=== PATIENT | female | born 1935 | race Caucasian/White ===

== ENCOUNTER 2019-02-25 20:13 | Inpatient (IN) | payer MEDICARE, MEDICAID ==
[~2019-02-25] VITALS: Ht 167.6 cm; Wt 86.2 kg
[2019-02-25] MEDS: HEPARIN SOD (PORCINE) 5000 UNITS/ML VIAL SC SCH (21:00)
[2019-02-25] MEDS ORDERED: NOREPINEPHRINE BITARTRATE 8 MG in D5W 492 ML IV SCH (22:00)
[2019-02-25] MEDS ORDERED: guaiFENesin SYRUP 200 MG/10 ML UDC PO PRN (23:15)
[2019-02-25 23:41] LABS: ABG BASE EXCESS -5.7 (-2.0-2.0); ABG HCO3 17.9 MEQ/L (22.0-26.0); ABG O2 SATURATION 96.8 % (95.0-99.0); ABG PARTIAL PRESSURE CO2 29.9 mmHg (35.0-45.0); ABG PARTIAL PRESSURE O2 86.3 mmHg (75.0-100.0); ABG STANDARD HCO3 19.8 MEQ/L (22.0-26.0); ABG TOTAL CO2 18.9 MEQ/L (23.0-31.0); ABG pH (ARTERIAL) 7.396 UNITS (7.350-7.450)
[2019-02-26] VITALS (20 sets, daily range): BP systolic 92–158; BP diastolic 53–80
[2019-02-26 00:09] LABS: HEMATOCRIT 36.6 % (36.0-47.0); MEAN CORPUSCULAR HEMOGLOBIN 30.2 pg (27.0-33.0); MEAN CORPUSCULAR HGB CONC 32.8 g/dl (32.0-36.5); MEAN CORPUSCULAR VOLUME 92.2 fl (80.0-96.0); PLATELET COUNT, AUTOMATED 142 10^3/uL (150-450); RED BLOOD COUNT 3.97 10^6/uL (4.00-5.40); WHITE BLOOD COUNT 25.1 10^3/uL (4.0-10.0)
[2019-02-26] MEDS ORDERED: LIDOCAINE 1% MDV 20ML VIAL As Ordered ONE (00:19)
[2019-02-26] MEDS ORDERED: ADV250INH INH (00:23)
[2019-02-26] MEDS ORDERED: HYDR200T3 PO ×2 (00:23→00:27)
[2019-02-26 00:25] LABS: ALBUMIN 2.4 GM/DL (3.2-5.2); BILIRUBIN,TOTAL 0.6 MG/DL (0.2-1.0); CALCIUM LEVEL 6.6 MG/DL (8.8-10.2); CREATININE FOR GFR 1.27 MG/DL (0.55-1.30); GLOMERULAR FILTRATION RATE 42.8 (>32); MAGNESIUM LEVEL 1.3 MG/DL (1.8-2.4); MB/CK RELATIVE INDEX 1.93 (< OR =4); POTASSIUM SERUM 3.6 MEQ/L (3.5-5.1); TOTAL PROTEIN 5.3 GM/DL (6.4-8.2); TROPONIN I 0.04 NG/ML (< 0.10)
[2019-02-26] MEDS ORDERED: LOSA100T50 PO (00:27)
[2019-02-26] MEDS ORDERED: VENTAER INH (00:27)
[2019-02-26] MEDS ORDERED: TRAM50TA2 PO (00:27)
[2019-02-26] MEDS ORDERED: FLUTISP (00:27)
[2019-02-26 00:28] LABS: LYMPHOCYTES 1 % (16-52); METAMYELOCYTES 4 % (0-0); NEUTROPHILS 84 % (35-75)
[2019-02-26 00:29] LABS: PLATELET ESTIMATE NORMAL (NORMAL)
[2019-02-26] MEDS ORDERED: RALO1TAB PO (00:33)
[2019-02-26] MEDS ORDERED: DICL100T89 PO (00:33)
[2019-02-26] MEDS ORDERED: AMLO2.5T3 PO (00:33)
[2019-02-26] MEDS ORDERED: NYAM10003 TOP (00:33)
[2019-02-26] MEDS ORDERED: SYNT25TA PO (00:43)
[2019-02-26] MEDS ORDERED: GABA-843 PO (00:43)
[2019-02-26] MEDS ORDERED: ARTI99.0 OU (00:43)
[2019-02-26] MEDS ORDERED: FLUO1OPD OU (00:43)
[2019-02-26] MEDS ORDERED: PROL60SO SC (00:43)
[2019-02-26] MEDS ORDERED: DICL50TAB PO (00:43)
[2019-02-26] MEDS ORDERED: TRAV04OPD OU (00:43)
[2019-02-26] MEDS ORDERED: OMEP20TA17 PO (00:43)
[2019-02-26] MEDS ORDERED: FURO20TA2 PO (00:43)
[2019-02-26] MEDS ORDERED: REST0.05 OU (00:43)
[2019-02-26] MEDS: NS 1,000 ML IV SCH ×2 (00:45→10:59)
[2019-02-26] MEDS: ACETAMINOPHEN TAB 650MG DOSE (2X325MG) PO PRN (00:47)
[2019-02-26] MEDS: guaiFENesin DM LIQ 10ML UD PO SCH ×5 (00:47→23:34)
[2019-02-26] MEDS ORDERED: ALBUTEROL 90 MCG/ACT 8GM HFA INHALER INH PRN (01:00)
[2019-02-26] MEDS ORDERED: POLYVINYL ALCOHOL OPHTH SOLN 15 ML(LIQUITEARS) OU PRN (01:00)
[2019-02-26] MEDS ORDERED: NYSTATIN 100,000 UNITS/GM TOPICAL PWD 15 GM TOP PRN (01:30)
[2019-02-26] MEDS ORDERED: NOREPINEPHRINE BITARTRATE 8 MG in D5W 492 ML IV SCH (02:00)
[2019-02-26] MEDS ORDERED: PILL CRUSHER/CUTTER 1 EACH XX PRN (02:45)
[2019-02-26] MEDS ORDERED: VANCOMYCIN HCL 1,000 MG, VIAL MATE ADAPTER 1 EACH in D5W 250 ML IV ONE (04:30)
[2019-02-26 05:38] LABS: HEMATOCRIT 35.2 % (36.0-47.0); HEMOGLOBIN 11.3 g/dl (12.0-15.5); MEAN CORPUSCULAR HEMOGLOBIN 29.7 pg (27.0-33.0); MEAN CORPUSCULAR HGB CONC 32.1 g/dl (32.0-36.5); MEAN CORPUSCULAR VOLUME 92.4 fl (80.0-96.0); PLATELET COUNT, AUTOMATED 116 10^3/uL (150-450); RED BLOOD COUNT 3.81 10^6/uL (4.00-5.40); WHITE BLOOD COUNT 22.7 10^3/uL (4.0-10.0)
[2019-02-26] MEDS ORDERED: MAGNESIUM OXIDE 400 MG TAB (MAG-OX) PO ONE (06:00)
[2019-02-26 06:02] LABS: MAGNESIUM LEVEL 1.3 MG/DL (1.8-2.4)
[2019-02-26 06:05] LABS: CALCIUM LEVEL 6.6 MG/DL (8.8-10.2); CREATININE FOR GFR 1.23 MG/DL (0.55-1.30); GLOMERULAR FILTRATION RATE 44.4 (>32); POTASSIUM SERUM 3.5 MEQ/L (3.5-5.1)
[2019-02-26] MEDS: PIPERACILLIN/TAZOBACTAM SOD 4.5 GM in D5W MINI-BAG PLUS 50 ML IV SCH ×4 (06:07→23:34)
[2019-02-26] MEDS: LEVOTHYROXINE 25MCG TABLET (0.025MG) PO SCH (06:07)
--- NOTE | 2019-02-26 06:20 | PHACANCOPD ---
PHARMACY VANCOMYCIN DOSING Pt Demographics Demographics Patient Age:84 , Weight:95.000 , Gender: female Adjusted Body Weight Date: 02/26/19, Adjusted Body Weight: [73.6] Kg Vancomycin Vancomycin indication: SEPTIC SHOCK Vancomycin Target Ranges: 15-20 mcg/ml Vancomycin Load Y/N: No Load Dose Date Time Vancomycin Load Dose: Date: Time: Vancomycin Dose Date: 02/26/19. Current Vancomycin Dose: [1 GM Q24H] Intermittent Dosing?: No Labs Labs Laboratory Tests 02/25/19 23:39 Red Blood Count 3.97 L, Mean Corpuscular Volume 92.2, Mean Corpuscular Hemoglobin 30.2, Mean Corpuscular Hemoglobin Concent 32.8, Red Cell Distribution Width 13.4, Calcium Level 6.6 L, Aspartate Amino Transf (AST/SGOT) 29, Alanine Aminotransferase (ALT/SGPT) 18, Total Creatine Kinase 316 H, Alkaline Phosphatase 59, Total Bilirubin 0.6, Total Protein 5.3 L, Albumin 2.4 L 02/26/19 05:15 Red Blood Count 3.81 L, Mean Corpuscular Volume 92.4, Mean Corpuscular Hemoglobin 29.7, Mean Corpuscular Hemoglobin Concent 32.1, Red Cell Distribution Width 13.4, Calcium Level 6.6 L Micro Microbiology 02/26/19 Blood Culture, Received Pending 02/26/19 Gram Stain, Received Pending 02/26/19 Sputum Culture, Received Pending Creatinine Clearance Date:02/26/19. Creatinine Clearance: [38.99].Calculated Pending Labs Vancomycin trough due 02/27@2099 Assessment and Plan Maintaining Current Dose?: Yes Reason for dose change: No Dose Change Pharmacist Note Pharmacist Note Date: 02/26/19. Pharmacist note:[id number] :Septic Shock;Scr=1.27,CRCL=38.9-calculated .Pip/Tazo 4.5gm Q6h plus Vancomycin per Pharmacy dosing protocol.Vancomycin 1 gm @0500,then will begin Q24H rghimen 02/26@2200, First trough scheduled for 02/27@2099-prior to the third dose-will continue to follow and adjust dose as needed CLAYTON [facility] Feb 26, 2019 06:20
--- NOTE | 2019-02-26 07:44 | REP ---
Portable chest, 11:42 p.m., single semi upright AP view: There are no comparisons. There is a large right upper lobe infiltrate. Left lung is clear. Cardiac size is normal. The abbie and mediastinum are unremarkable. There is bilateral shoulder osteoarthritis. There is a right IJ central venous catheter with the tip in the right atrium. Impression: Large right upper lobe infiltrate. Right IJ central venous catheter. Electronically Signed by Luis Penaloza MD 02/26/2019 07:35 A
--- NOTE | 2019-02-26 07:46 | REP ---
Portable chest, 12:56 a.m., single AP upright view: Comparison is from 02/25/2019. There is a large right upper lobe infiltrate, unchanged. There are small bilateral pleural effusions as an interval change. The right IJ central venous catheter is unchanged. Cardiac size is normal. Brenda and mediastinum are unchanged. Bilateral shoulder osteoarthritis is unchanged. Impression: Large right upper lobe infiltrate. Small bilateral pleural effusions. Right IJ central venous catheter. Electronically Signed by Luis Penaloza MD 02/26/2019 07:37 A
[2019-02-26 07:55] LABS: C REACTIVE PROTEIN QUANTITATIV 31.1 MG/DL (0.00-0.30)
--- NOTE | 2019-02-26 07:56 | HPE ---
DATE OF ADMISSION: 02/25/2019 CHIEF COMPLAINT: Feeling ill. HISTORY OF PRESENT ILLNESS: Ms. Jones is an 84-year-old female direct transfer from [facility] for septic shock secondary to pneumonia. She initially had presented to [facility] per the urging of her son who had felt that Ms. Jones was not herself for the previous few days. She herself denies any new complaints besides coughing and feeling more short of breath and she otherwise feels well. In the emergency room (ER) at [facility] she was noted to be febrile up to 101.4 and was noted to be quite hypotensive with a blood pressure (BP) of 71/37 on admission, pulse of 110, respirations at 29. She failed volume resuscitation and thus a central line was placed and she was started on Levophed. Due to lack of intensive care unit (ICU) bed she was transferred over to [facility]. Per hospital record she was started on intravenous (IV) Zosyn and Levaquin. She was found to have acute kidney injury (DON) and elevated C-reactive protein (CRP). CRP was elevated at 208. Chest x-ray revealed a right midlung mass versus a pneumonia. CT of the head was negative. CT of the chest confirmed a pneumonia and she was thereafter transferred to our facility. At the time of transfer the patient is fully conversant and continued on pressors in our ICU. She is a limited historian and admits to cough with some phlegm, increasing shortness of breath and wheezing and generalized weakness over the past couple of days. She states she lives alone at home and otherwise has been feeling well. She does have multiple falls at home, worsening over the previous few days that she has felt weaker. Otherwise she denies any chest discomfort, lightheadedness, dizziness, nausea or vomiting, abdominal pain or any other gastrointestinal (GI) symptoms. She also denies any sick contacts or any recent changes in medications. PAST MEDICAL HISTORY: 1. Osteoarthritis. 2. Sjogren's syndrome with keratoconjunctivitis sicca. 3. Hypertension. 4. Peripheral neuropathy. 5. Hypothyroidism. 6. Gastroesophageal reflux disease (GERD). PAST SURGICAL HISTORY: 1. Appendectomy. 2. Cholecystectomy. 3. Hysterectomy. 4. Mastectomy. 5. Right knee surgery. 6. Hip replacement. SOCIAL HISTORY: Denies ever smoking, denies alcohol or illicit substances. Lives alone at home. Previously worked as a pathology secretary. FAMILY HISTORY: Noncontributory. HOME MEDICATIONS: - albuterol - amlodipine 2.5 mg by mouth daily - cyclosporin eye drops - Prolia every six months - diclofenac as needed pain - fluorometholone eye drops - fluticasone propionate nasal spray - furosemide 20 mg by mouth daily - gabapentin 900 mg by mouth twice a day - hydroxychloroquine sulfate 300 mg by mouth daily - Synthroid 25 mcg by mouth daily - losartan 100 mg by mouth daily - nystatin - omeprazole 20 mg by mouth daily - artificial tears as needed dry eyes - raloxifene 60 mg by mouth daily - salmeterol fluticasone - tramadol as needed pain - Travatan eye drops ALLERGIES: FENOPROFEN causes hives. REVIEW OF SYSTEMS: GENERAL: Admits to fevers, chills, generalized malaise. Endorses a good appetite. Denies any weight loss. HEENT: Denies any new changes in vision or hearing. Denies any headaches. Admits to chronic dry eyes given her keratoconjunctivitis. CARDIAC: Denies chest pain, palpitations or new edema. LUNGS: Admits to increasing shortness of breath, coughing and wheezing with some phlegm production. GASTROINTESTINAL (GI): Denies nausea, vomiting, abdominal pain, or change in bowel habits. SKIN: Denies any new rashes or lesions. MUSCULOSKELETAL: Denies any new pain or localized aches. NEUROLOGY: Denies any new numbness, tingling or sensory loss. PHYSICAL EXAMINATION: VITAL SIGNS: Temperature 100.3, pulse 110, respirations 24, blood pressure (BP) 110/68, MAP of 82, pulse oximetry 96% on 2 liters nasal cannula. She is on 12 mcg of Levophed. GENERAL: Resting comfortably in bed in no acute distress. Taking deep heavy breaths but able to fully converse with intermittent coughing in between sentences. HEENT: Normocephalic, atraumatic. Extraocular muscles intact. Dry mucous membranes. NECK: Supple without any jugular venous distention (JVD). CARDIAC: Borderline tachycardic, regular rate, no audible murmurs. LUNGS: Mild rales more so on the right base. Diffuse wheezing bilaterally. Equal chest rise. ABDOMEN: Soft, nontender, nondistended. Positive bowel sounds. EXTREMITIES: 2+ radial pulses bilaterally. No peripheral edema or calf tenderness. MUSCULOSKELETAL: Able to move all extremities and independently against gravity. NEUROLOGY: No focal deficits. Fully conversant. Alert and oriented times three. GENITOURINARY (): Celaya in place with clear yellow urine output. LABORATORY DATA: WBC 25.1, hemoglobin 12, hematocrit 36, platelets 142. Sodium 135, potassium 2.6, chloride 104, bicarbonate 19, BUN 28, creatinine 1.27. Lactate 1.5, magnesium 1.3, AST 29, ALT 19. Sputum culture pending. Chest x-ray read currently pending but by personal visualization, she has visible consolidations in the right lung and increased haziness. She has a central line that initially appeared to be in the inferior vena cava and was readjusted by myself in the ICU and repeat chest x-ray reveals improvement placement of her right internal jugular (IJ) catheter. ASSESSMENT AND PLAN: 1. Septic shock secondary to community acquired pneumonia. The patient is noted to be febrile, tachycardic, tachypneic with elevated white count on initial presentation to [facility] and failed intravenous (IV) fluid resuscitation. She is currently on Levophed 12 mcg at the time of transfer. Will plan to titrate down, continue broad-spectrum antibiotics vancomycin and Zosyn. Methicillin resistant Staphylococcus aureus (MRSA) screen is pending. Blood cultures, MRSA screening and procalcitonin are currently pending. Her arterial blood gases (ABG) reveals normal pH of 7.39, PCO2 29, O2 86. She is currently requiring 2 liters nasal cannula. She is on none at baseline, acute hypoxia secondary to her acute pneumonia. Continue on droplet precautions and encourage incentive spirometry and continue supportive care with antitussives. Her C-reactive protein (CRP) at [facility] was significantly elevated at 208, We will continue to trend this throughout her stay. 2. Acute kidney injury (DON): Per records from [facility] her BUN and creatinine were 31 and 1.58 which appeared to have improved upon transfer. Per her record she is down to 28 and 1.27 likely is prerenal given her hypotensive episode. Will gently hydrate her with IV fluids and continue on pressors. She has a Celaya in place for critical monitoring of in and out (I and O). We do not have any previous records but it appears she might have a baseline chronic kidney disease (CKD) III. Will attempt to obtain outpatient records upon clarifying who her primary care physician (PCP) is. 3. Hypomagnesemia. Per previous hospital records at [facility], magnesium was 0.9 which was supplemented and currently is at 1.3. Will continue supplementation, reassess. 4. Sjogren's Syndrome with keratoconjunctivitis sicca. Continue home Plaquenil and eye drops. 5. Osteoarthritis. Continue home pain medications. 6. Hypothyroidism. Her TSH checked at [facility] was within normal at 0.799. Continue home Synthroid. 7. Hypertension. She is on amlodipine, Losartan and Lasix at home which we will hold given her septic shock. 8. Gastroesophageal reflux disease (GERD): Continue home omeprazole. 9. Deep venous thrombosis (DVT) prophylaxis. Heparin subcutaneous. DISPOSITION: Will admit to hospital service, closely monitor in the ICU. Per transfer report, her initial chest imaging revealed possible pneumonia versus mass. This will require further followup as she improves from her acutely infectious state. Also, per her transfer records she had stated that she would like to be DO NOT RESUSCITATE/ DO NOT INTUBATE (DNR/DNI) however there is no Medical Orders for Life-Sustaining Treatment (MOLST) form currently. Will address this directly with her as her mentation improves. My faculty preceptor for this patient encounter was physically present during the encounter and was fully available. All aspects of the patient interview, examination, medical decision-making process, and medical care plan development were reviewed and approved by the faculty preceptor. The faculty preceptor is aware and concurs with the plan as stated in the body of this note and will attest to such by his/her co-signature. Attending Addendum: I have reviewed the residents note and have personally examined the patient. I agree with the Residents physical examination and assessment and plan. JANNIE
[2019-02-26] MEDS: IPRATROPIUM 0.5MG/ALBUTEROL 2.5MG INH SOL UD 3ML (DUONEB)(J7620) NEB SCH ×4 (08:00→19:55)
[2019-02-26] MEDS ORDERED: MAG SULF 1GM/100ML (MAG RUN) 1 GM in APPROPRIATE DILUENT 1 EA IV ONE (08:00)
[2019-02-26] MEDS: HYDROXYCHLOROQUINE 200 MG TAB PO SCH (08:19)
[2019-02-26] MEDS: HEPARIN SOD (PORCINE) 5000 UNITS/ML VIAL SC SCH ×2 (08:19→20:07)
[2019-02-26] MEDS: GABAPENTIN 300 MG CAP PO SCH ×2 (08:19→20:07)
[2019-02-26] MEDS: NYSTATIN 100,000 UNITS/GM TOPICAL PWD 15 GM TOP SCH ×2 (08:20→20:07)
[2019-02-26] MEDS: FLUTICASONE PROP 0.05% NASAL SPRAY 16 GM (FLONASE) SCH ×2 (08:20→20:08)
[2019-02-26] MEDS: FLUOROMETHOLONE 0.1% OPHTH SUSP 5 ML BTL OU SCH ×4 (08:21→20:08)
[2019-02-26] MEDS ORDERED: PANTOPRAZOLE 40MG INJ (PROTONIX) (C9113) IV SCH (09:00)
[2019-02-26] MEDS: ADVAIR HFA 115/21MCG INHALER INH SCH ×2 (10:18→19:55)
--- NOTE | 2019-02-26 15:53 | IPNPDOC ---
Date Seen The patient was seen on 02/26/19. Progress Note SUBJECTIVE: Patient is a 84-year-old female who is in examined this morning at bedside. She states that she's feeling a little better since she's been at [facility]. Her shortness of breath is slightly improved but she still experiencing a productive cough that is clear in color. He noticed that her shortness of breath improves when she is a little more upright. She denies any fevers chills night sweats. She would like to have some food she denies any chest pain headache lightheadedness or dizziness. She has no complaints this morning. She's been off the Levophed since 6 AM this morning. A MOLST was filled up with the patient,son and daughter at bedside. She is DNR/DNI. OBJECTIVE PHYSICAL EXAMINATION: VITAL SIGNS: Please see below. GENERAL: Pleasant 84-year-old female does not appear in acute distress but slightly short of breath with continued conversation improved with elevation of the bed more than 45 HEENT: Atraumatic normocephalic. EOMI, dry mucous membranes CARDIOVASCULAR: Distant heart sounds. RESPIRATORY:Clear to auscultate at the left lung askew. Diminished breath sounds in the right middle lung field. Slight expiratory wheeze in the right field as well. No rhonchi is a Rales ABDOMINAL: Soft nontender obese abdomen positive bowel sounds in all 4 quadrants EXTREMITIES: No lower extremity edema bilaterally or calf tenderness. 2+ pedal pulses. NEUROLOGICAL: Alert and oriented 3 competent LABORATORY DATA, IMAGING STUDIES, MICROBIOLOGY: Please see below. DVT prophylaxis ordered?: Heparin ASSESSMENT AND PLAN: Septic shock secondary to right upper lobe Pneumonia - [facility]: febrile, tachycardic, tachypneic & leukocyotis failed IV fluid resuscitation Levophed 12 mcg at the time of transfer, -CXR: large right upper lobe infiltrate. Small bilateral pleural effusions. Right IJ central venous catheter. - Clinically improving off the off pressors since the AM - Antibiotics: vancomycin and Zosyn. MRSA screening pending, (antibiotics therapy for 7-10 days) -Supportive care: Robitussin, DuoNeb's, albuterol -Cultures: Sputum, Blood pending -procalcitonin pending, trend CRP for clinical improvemnent -2 liters nasal cannula. does not use oxygen at home Acute kidney injury [facility]: BUN and creatinine: 31 and 1.58 -Discontinue fluids once good by mouth intake. -Discontinue Celaya We do not have Hypomagnesemia. -Will supplement as needed. Sjogren's Syndrome with keratoconjunctivitis sicca. -c/w home Plaquenil and eye drops. Osteoarthritis. -Continue with home gabapentin -Will hold tramadol until kidney function returns to baseline Hypothyroidism. c/w home Synthroid. Hypertension. -continue to hold amlodipine, Losartan and Lasix Gastroesophageal reflux disease (GERD): -c/w home omeprazole. Physical therapy -consulted Deep venous thrombosis (DVT) prophylaxis - Heparin subcutaneous CODE STATUS DNR/DNI VS, I&O, 24H, [facility] Vital Signs/I&O Vital Signs Date Time Temp Pulse Resp B/P (MAP) Pulse Ox O2 Delivery O2 Flow Rate FiO2 02/26/19 14:00 96 106/59 (75) 97 1.0 02/26/19 12:00 98.6 20 02/26/19 12:00 96 I&O- Last 24 Hours up to 6 AM 02/26/19 06:00 Intake Total 590 ml Output Total 2500 ml Balance -1910 ml Laboratory Data 24H LABS Laboratory Tests 2 02/25/19 23:33: Blood Gas Bicarbonate Standard 19.8L, Arterial Blood pH 7.396, Arterial Blood Partial Pressure CO2 29.9L, Arterial Blood Partial Pressure O2 86.3, Arterial Blood Total CO2 18.9L, Arterial Blood HCO3 17.9L, Arterial Blood Base Excess - 5.7L, Arterial Blood Oxygen Saturation 96.8 02/25/19 23:39: Immature Granulocyte % (Auto) , Nucleated Red Blood Cells % (auto) 0.0, Neutrophils 84H, Band Neutrophils 11, Lymphocytes (Manual) 1L, Metamyelocytes 4H, Platelet Estimate NORMAL, Red Blood Cell Morphology NORMAL, Anion Gap 12, Glomerular Filtration Rate 42.8, Blood Urea Nitrogen 28H, Creatinine 1.27, Sodium Level 135L, Potassium Level 3.6, Chloride Level 104, Carbon Dioxide Level 19L, Calcium Level 6.6L, Aspartate Amino Transf (AST/SGOT) 29, Alanine Aminotransferase (ALT/SGPT) 18, Total Creatine Kinase 316H, Alkaline Phosphatase 59, Total Bilirubin 0.6, Total Protein 5.3L, Albumin 2.4L, Magnesium Level 1.3L, Creatine Kinase MB 6.0H, Creatine Kinase MB Relative Index 1.93, Troponin I 0.04, Albumin/Globulin Ratio 0.83L, Procalcitonin 16.96 02/25/19 23:40: Lactic Acid Level 1.5 02/26/19 05:15: Nucleated Red Blood Cells % (auto) 0.0, Anion Gap 10, Glomerular Filtration Rate 44.4, Blood Urea Nitrogen 25H, Creatinine 1.23, Sodium Level 134L, Potassium Level 3.5, Chloride Level 103, Carbon Dioxide Level 21, Calcium Level 6.6L, Magnesium Level 1.3L, C-Reactive Protein, Quantitative 31.10H CBC/BMP Laboratory Tests 02/25/19 23:39 Red Blood Count 3.97 L, Mean Corpuscular Volume 92.2, Mean Corpuscular Hemoglobin 30.2, Mean Corpuscular Hemoglobin Concent 32.8, Red Cell Distribution Width 13.4, Calcium Level 6.6 L, Aspartate Amino Transf (AST/SGOT) 29, Alanine Aminotransferase (ALT/SGPT) 18, Total Creatine Kinase 316 H, Alkaline Phosphatase 59, Total Bilirubin 0.6, Total Protein 5.3 L, Albumin 2.4 L 02/26/19 05:15 Red Blood Count 3.81 L, Mean Corpuscular Volume 92.4, Mean Corpuscular He moglobin 29.7, Mean Corpuscular Hemoglobin Concent 32.1, Red Cell Distribution Width 13.4, Calcium Level 6.6 L Microbiology Microbiology 02/26/19 Blood Culture, Received Pending 02/26/19 Blood Culture, Received Pending 02/26/19 Gastrointestinal Tract Panel (PCR) - Final, Complete 02/26/19 Gram Stain - Final, Resulted 02/26/19 Sputum Culture, Resulted Pending 02/26/19 MRSA Screen, Received Pending GME ATTESTATION GME ATTESTATION My faculty preceptor for this patient encounter was physically present during the encounter and was fully available. All aspects of the patient interview, examination, medical decision making process, and medical care plan development were reviewed and approved by the faculty preceptor. The faculty preceptor is aware and concurs with the plan as stated in the body of this note and will attest to such by his/her cosignature. ATTENDING NOTE I saw and evaluated the patient. I agree with the findings and plan of care as documented in the resident's note NATI THORNTON DO Feb 26, 2019 15:53 KAITLIN VELÁZQUEZ MD Mar 12, 2019 17:16
[2019-02-26] MEDS: LACTOBACILLUS ACIDOPHILUS CAP (BACID) PO SCH (17:13)
[2019-02-26] MEDS: LATANOPROST 0.005% OPHTH SOLN 2.5 ML OU SCH (20:08)
[2019-02-26] MEDS ORDERED: VANCOMYCIN HCL 1,000 MG, VIAL MATE ADAPTER 1 EACH in D5W 250 ML IV SCH (22:00)
[2019-02-27 04:00] VITALS: BP 135/90
[2019-02-27] MEDS: PIPERACILLIN/TAZOBACTAM SOD 4.5 GM in D5W MINI-BAG PLUS 50 ML IV SCH ×3 (05:43→18:00)
[2019-02-27] MEDS: LEVOTHYROXINE 25MCG TABLET (0.025MG) PO SCH (05:44)
[2019-02-27] MEDS: guaiFENesin DM LIQ 10ML UD PO SCH ×4 (05:44→23:51)
[2019-02-27 06:01] LABS: HEMATOCRIT 29.3 % (36.0-47.0); HEMOGLOBIN 9.7 g/dl (12.0-15.5); MEAN CORPUSCULAR HGB CONC 33.1 g/dl (32.0-36.5); MEAN CORPUSCULAR VOLUME 90.7 fl (80.0-96.0); PLATELET COUNT, AUTOMATED 104 10^3/uL (150-450); RED BLOOD COUNT 3.23 10^6/uL (4.00-5.40); WHITE BLOOD COUNT 14.8 10^3/uL (4.0-10.0)
[2019-02-27 06:35] LABS: BLOOD UREA NITROGEN 19 MG/DL (7-18); CALCIUM LEVEL 6.4 MG/DL (8.8-10.2); CARBON DIOXIDE LEVEL 23 MEQ/L (21-32); CHLORIDE LEVEL 103 MEQ/L (98-107); CREATININE FOR GFR 0.85 MG/DL (0.55-1.30); GLOMERULAR FILTRATION RATE > 60.0 (>32); GLUCOSE, FASTING 86 MG/DL (70-100); MAGNESIUM LEVEL 1.9 MG/DL (1.8-2.4); POTASSIUM SERUM 3.1 MEQ/L (3.5-5.1); SODIUM LEVEL 135 MEQ/L (136-145)
[2019-02-27] MEDS: IPRATROPIUM 0.5MG/ALBUTEROL 2.5MG INH SOL UD 3ML (DUONEB)(J7620) NEB SCH ×4 (07:11→20:00)
[2019-02-27] MEDS: ADVAIR HFA 115/21MCG INHALER INH SCH ×2 (07:11→20:00)
[2019-02-27] MEDS ORDERED: POTASSIUM CHLORIDE 10 MEQ SR TABLET PO ONE ×2 (07:30→12:00)
[2019-02-27 08:00] VITALS: BP 120/58
[2019-02-27] MEDS: LACTOBACILLUS ACIDOPHILUS CAP (BACID) PO SCH ×2 (08:22→17:58)
[2019-02-27] MEDS: GABAPENTIN 300 MG CAP PO SCH ×2 (08:23→20:19)
[2019-02-27] MEDS: OMEPRAZOLE 20 MG CAP PO SCH (08:24)
[2019-02-27] MEDS: HYDROXYCHLOROQUINE 200 MG TAB PO SCH (08:24)
[2019-02-27] MEDS: FLUTICASONE PROP 0.05% NASAL SPRAY 16 GM (FLONASE) SCH ×2 (08:26→20:40)
[2019-02-27] MEDS: FLUOROMETHOLONE 0.1% OPHTH SUSP 5 ML BTL OU SCH ×4 (08:27→20:20)
[2019-02-27] MEDS: HEPARIN SOD (PORCINE) 5000 UNITS/ML VIAL SC SCH ×2 (10:30→20:20)
[2019-02-27] MEDS ORDERED: SLF 3 ML SYR IV PRN ×2 (11:15→13:30)
[2019-02-27 12:00] VITALS: BP 126/65
--- NOTE | 2019-02-27 12:40 | IPNPDOC ---
Date Seen The patient was seen on 02/27/19. Progress Note SUBJECTIVE: Patient is a 84-year-old female who is in examined this morning at bedside. Days that she is feeling much better. She is currently off of nasal cannula satting appropriately on room air. She did feel a shortness of breath pressure in the middle of her chest earlier this morning. EKG done at bedside which reviewed showed no EKG changes and was in sinus rhythm. She had no T-wave abnormalities. Her diarrhea has improved as well since she's been in PCU. She's been off of the Levophed since yesterday morning. Her MRSA screen came back negative. She has no complaints this morning. She denies any worsening shortness of breath, nausea, vomiting, diarrhea, constipation. She has no other complaints at this time. OBJECTIVE PHYSICAL EXAMINATION: VITAL SIGNS: Please see below. GENERAL: Pleasant 84-year-old female does not appear in acute distress properly answering questions. HEENT: Atraumatic normocephalic. EOMI, dry mucous membranes CARDIOVASCULAR: Distant heart sounds. RESPIRATORY:Clear to auscultate at the left lung askew. Improved breath sounds in the right middle lung field. No rhonchi is a Rales ABDOMINAL: Soft nontender obese abdomen positive bowel sounds in all 4 quadrants EXTREMITIES: No lower extremity edema bilaterally or calf tenderness. 2+ pedal pulses. NEUROLOGICAL: Alert and oriented 3 competent LABORATORY DATA, IMAGING STUDIES, MICROBIOLOGY: Please see below. DVT prophylaxis ordered?: Heparin ASSESSMENT AND PLAN: Septic shock secondary to right upper lobe Pneumonia - community acquired pneumonia -[facility]: febrile, tachycardic, tachypneic & leukocyotis failed IV fluid resuscitation Levophed 12 mcg at the time of transfer, -CXR: large right upper lobe infiltrate. Small bilateral pleural effusions. Right IJ central venous catheter. -Clinically improving off the off pressors since 02/26 -Antibiotics: Zosyn. (antibiotics therapy for 7-10 days to cover for community- acquired pneumonia) -Supportive care: Robitussin, DuoNeb's, albuterol -Cultures: Sputum, Blood pending - we'll de-escalate antibiotics pending these results. -procalcitonin 16.96, trend CRP for clinical improvemnent -OFF oxygen Chest discomfort -EKG negative T-wave abnormalities -Troponin -0.02 -Likely secondary to her underlying pneumonia we'll continue monitor Acute kidney injury (resolved) Hypokalemia and Hypomagnesemia. -Will supplement as needed. Sjogren's Syndrome with keratoconjunctivitis sicca. -c/w home Plaquenil and eye drops. Osteoarthritis. -Continue with home gabapentin -Will hold tramadol until kidney function returns to baseline Hypothyroidism. c/w home Synthroid. Hypertension. -continue to hold amlodipine, Losartan and Lasix -Will consider restarting in the a.m. Gastroesophageal reflux disease (GERD): -c/w home omeprazole. Physical therapy/occupational therapy -consulted Deep venous thrombosis (DVT) prophylaxis - Heparin subcutaneous CODE STATUS DNR/DNI Diet -Low-sodium diet because of history of hypertension Disposition possible discharge in 24-48 hours VS, I&O, 24H, [facility] Vital Signs/I&O Vital Signs Date Time Temp Pulse Resp B/P (MAP) Pulse Ox O2 Delivery O2 Flow Rate FiO2 02/27/19 08:00 98.5 85 18 120/58 (78) 92 02/26/19 20:00 1.0 94 I&O- Last 24 Hours up to 6 AM 02/27/19 06:00 Intake Total 3045 ml Output Total 2820 ml Balance 225 ml Laboratory Data 24H LABS Laboratory Tests 2 02/27/19 05:48: Nucleated Red Blood Cells % (auto) 0.0, Anion Gap 9, Glomerular Filtration Rate > 60.0, Blood Urea Nitrogen 19H, Creatinine 0.85, Sodium Level 135L, Potassium Level 3.1L, Chloride Level 103, Carbon Dioxide Level 23, Calcium Level 6.4L, Magnesium Level 1.9, C-Reactive Protein, Quantitative 27.00H 02/27/19 10:28: Troponin I < 0.02#, Vancomycin Level Trough 9.4L CBC/BMP Laboratory Tests 02/27/19 05:48 Red Blood Count 3.23 L, Mean Corpuscular Volume 90.7, Mean Corpuscular Hemog lobin 30.0, Mean Corpuscular Hemoglobin Concent 33.1, Red Cell Distribution Width 13.3, Calcium Level 6.4 L Microbiology Microbiology 02/26/19 Blood Culture - Preliminary, Resulted No growth after 24 hours . All specim... 02/26/19 Blood Culture - Preliminary, Resulted No growth after 24 hours . All specim... 02/26/19 Gastrointestinal Tract Panel (PCR) - Final, Complete 02/26/19 Gram Stain - Final, Resulted 02/26/19 Sputum Culture, Resulted Pending 02/26/19 MRSA Screen - Final, Complete GME ATTESTATION GME ATTESTATION My faculty preceptor for this patient encounter was physically present during the encounter and was fully available. All aspects of the patient interview, examination, medical decision making process, and medical care plan development were reviewed and approved by the faculty preceptor. The faculty preceptor is aware and concurs with the plan as stated in the body of this note and will attest to such by his/her cosignature. ATTENDING NOTE I saw and evaluated the patient. I agree with the findings and plan of care as documented in the resident's note NATI THORNTON DO Feb 27, 2019 12:40 KAITLIN VELÁZQUEZ MD Mar 12, 2019 17:19
[2019-02-27] MEDS: SLF 3 ML SYR IV SCH ×2 (14:00→20:22)
[2019-02-27] MEDS ORDERED: SLF 3 ML SYR IV SCH (14:00)
[2019-02-27 16:00] VITALS: BP 126/72
[2019-02-27 20:00] VITALS: BP 138/72
[2019-02-27] MEDS: LATANOPROST 0.005% OPHTH SOLN 2.5 ML OU SCH (20:40)
[2019-02-27] MEDS ORDERED: BENZONATATE 100 MG CAP PO PRN (22:15)
[2019-02-27] MEDS ORDERED: BENZONATATE 100 MG CAP PO ONE (22:15)
[2019-02-27 23:59] VITALS: BP 108/74
[2019-02-28] MEDS: PIPERACILLIN/TAZOBACTAM SOD 4.5 GM in D5W MINI-BAG PLUS 50 ML IV SCH ×5 (00:56→23:49)
[2019-02-28 04:00] VITALS: BP 118/74
[2019-02-28] MEDS: LEVOTHYROXINE 25MCG TABLET (0.025MG) PO SCH (05:46)
[2019-02-28] MEDS: guaiFENesin DM LIQ 10ML UD PO SCH ×4 (05:46→23:49)
[2019-02-28] MEDS: SLF 3 ML SYR IV SCH ×3 (05:46→22:42)
[2019-02-28 06:12] LABS: HEMATOCRIT 29.3 % (36.0-47.0); HEMOGLOBIN 9.8 g/dl (12.0-15.5); MEAN CORPUSCULAR HEMOGLOBIN 30.2 pg (27.0-33.0); MEAN CORPUSCULAR HGB CONC 33.4 g/dl (32.0-36.5); MEAN CORPUSCULAR VOLUME 90.2 fl (80.0-96.0); PLATELET COUNT, AUTOMATED 105 10^3/uL (150-450); RED BLOOD COUNT 3.25 10^6/uL (4.00-5.40); WHITE BLOOD COUNT 6.8 10^3/uL (4.0-10.0)
[2019-02-28 06:31] LABS: BLOOD UREA NITROGEN 14 MG/DL (7-18); CALCIUM LEVEL 7.2 MG/DL (8.8-10.2); CARBON DIOXIDE LEVEL 22 MEQ/L (21-32); CHLORIDE LEVEL 109 MEQ/L (98-107); CREATININE FOR GFR 0.66 MG/DL (0.55-1.30); GLOMERULAR FILTRATION RATE > 60.0 (>32); GLUCOSE, FASTING 88 MG/DL (70-100); POTASSIUM SERUM 3.7 MEQ/L (3.5-5.1); SODIUM LEVEL 138 MEQ/L (136-145)
[2019-02-28] MEDS: ADVAIR HFA 115/21MCG INHALER INH SCH ×2 (07:53→21:12)
[2019-02-28] MEDS: IPRATROPIUM 0.5MG/ALBUTEROL 2.5MG INH SOL UD 3ML (DUONEB)(J7620) NEB SCH ×4 (07:54→20:00)
[2019-02-28 08:00] VITALS: BP 127/75
[2019-02-28] MEDS ORDERED: LOPERAMIDE 2 MG CAP PO PRN (08:45)
[2019-02-28] MEDS: GABAPENTIN 300 MG CAP PO SCH ×2 (09:06→22:41)
[2019-02-28] MEDS: HEPARIN SOD (PORCINE) 5000 UNITS/ML VIAL SC SCH ×2 (09:07→22:41)
[2019-02-28] MEDS: LACTOBACILLUS ACIDOPHILUS CAP (BACID) PO SCH ×2 (09:07→19:04)
[2019-02-28] MEDS: OMEPRAZOLE 20 MG CAP PO SCH (09:07)
[2019-02-28] MEDS: HYDROXYCHLOROQUINE 200 MG TAB PO SCH (09:08)
[2019-02-28] MEDS: FLUTICASONE PROP 0.05% NASAL SPRAY 16 GM (FLONASE) SCH ×2 (09:08→22:42)
[2019-02-28] MEDS: FLUOROMETHOLONE 0.1% OPHTH SUSP 5 ML BTL OU SCH ×4 (09:09→22:42)
[2019-02-28] MEDS: NYSTATIN 100,000 UNITS/GM TOPICAL PWD 15 GM TOP SCH (09:09)
[2019-02-28 12:00] VITALS: BP 140/78
[2019-02-28 16:00] VITALS: BP 128/76
--- NOTE | 2019-02-28 16:06 | ECGEPIP ---
Stationary ECG Study [facility] Test Date: 2019-02-27 Pat Name: PAIGE ROMAN Department: Room: Y8142-78 Gender: F [employer]: [employer]ARLA : [id number] Requested By: KAITLIN VELÁZQUEZ Order Number: [id number] Reading MD: Rigo Reyes Measurements Intervals [place] Rate: 85 P: 45 IL: 174 QRS: 43 QRSD: 102 T: 39 QT: 370 QTc: 440 Interpretive Statements SINUS RHYTHM, Within normal limits. Decreased heart rate and no PVCs or PACs compared with 02/25/2019. Electronically Signed On 02-28-2019 16:05:52 EDT by Rigo Reyes
[2019-02-28 22:00] VITALS: BP 146/78
[2019-02-28] MEDS: LATANOPROST 0.005% OPHTH SOLN 2.5 ML OU SCH (22:42)
[2019-02-28 23:05] VITALS: BP 142/72
[2019-03-01] MEDS: PIPERACILLIN/TAZOBACTAM SOD 4.5 GM in D5W MINI-BAG PLUS 50 ML IV SCH ×2 (05:45→12:33)
[2019-03-01] MEDS: guaiFENesin DM LIQ 10ML UD PO SCH ×4 (05:45→23:35)
[2019-03-01] MEDS: LEVOTHYROXINE 25MCG TABLET (0.025MG) PO SCH (05:45)
[2019-03-01] MEDS: SLF 3 ML SYR IV SCH ×3 (05:45→21:08)
[2019-03-01 06:00] VITALS: BP 152/70
[2019-03-01 06:04] LABS: HEMATOCRIT 31.8 % (36.0-47.0); HEMOGLOBIN 10.7 g/dl (12.0-15.5); MEAN CORPUSCULAR HEMOGLOBIN 30.3 pg (27.0-33.0); MEAN CORPUSCULAR HGB CONC 33.6 g/dl (32.0-36.5); MEAN CORPUSCULAR VOLUME 90.1 fl (80.0-96.0); PLATELET COUNT, AUTOMATED 100 10^3/uL (150-450); RED BLOOD COUNT 3.53 10^6/uL (4.00-5.40); WHITE BLOOD COUNT 3.2 10^3/uL (4.0-10.0)
[2019-03-01 06:27] LABS: BLOOD UREA NITROGEN 13 MG/DL (7-18); CALCIUM LEVEL 8.1 MG/DL (8.8-10.2); CARBON DIOXIDE LEVEL 23 MEQ/L (21-32); CHLORIDE LEVEL 105 MEQ/L (98-107); CREATININE FOR GFR 0.63 MG/DL (0.55-1.30); GLOMERULAR FILTRATION RATE > 60.0 (>32); GLUCOSE, FASTING 91 MG/DL (70-100); POTASSIUM SERUM 3.8 MEQ/L (3.5-5.1); SODIUM LEVEL 135 MEQ/L (136-145)
[2019-03-01] MEDS: ADVAIR HFA 115/21MCG INHALER INH SCH ×2 (08:00→20:00)
[2019-03-01] MEDS: IPRATROPIUM 0.5MG/ALBUTEROL 2.5MG INH SOL UD 3ML (DUONEB)(J7620) NEB SCH ×4 (08:00→20:00)
[2019-03-01] MEDS: GABAPENTIN 300 MG CAP PO SCH ×2 (08:28→21:05)
[2019-03-01] MEDS: HEPARIN SOD (PORCINE) 5000 UNITS/ML VIAL SC SCH ×2 (08:28→21:23)
[2019-03-01] MEDS: LACTOBACILLUS ACIDOPHILUS CAP (BACID) PO SCH ×2 (08:28→17:06)
[2019-03-01] MEDS: FLUTICASONE PROP 0.05% NASAL SPRAY 16 GM (FLONASE) SCH ×2 (08:29→21:07)
[2019-03-01] MEDS: OMEPRAZOLE 20 MG CAP PO SCH (08:29)
[2019-03-01] MEDS: HYDROXYCHLOROQUINE 200 MG TAB PO SCH (08:29)
[2019-03-01] MEDS: NYSTATIN 100,000 UNITS/GM TOPICAL PWD 15 GM TOP SCH (08:30)
[2019-03-01] MEDS: FLUOROMETHOLONE 0.1% OPHTH SUSP 5 ML BTL OU SCH ×4 (08:30→21:23)
[2019-03-01 09:17] LABS: BASO % 0.6 % (0.0-1.0); EOS % 1.3 % (0.0-3.0); LYMPH # 0.3 10^3/uL (1.5-4.5); LYMPH % 10.3 % (24.0-44.0); MONO # 0.6 10^3/uL (0.0-0.8); MONO % 19.1 % (0.0-5.0); NEUTROPHILS # 2.2 10^3/uL (1.8-7.7); NEUTROPHILS % 68.1 % (36.0-66.0)
[2019-03-01 14:00] VITALS: BP 172/94
--- NOTE | 2019-03-01 14:22 | IPNPDOC ---
Date Seen The patient was seen on 03/01/19. Progress Note SUBJECTIVE: Patient is a 84-year-old female who is in examined this morning at bedside. Says that she is feeling much better but she is still experiencing some no productive cough. She can feel the phylum at the center of her through. Chest PT was ordered but she hasn't gotten it yet. states her bowl movements have gotten better and they're less watery and less frequent. She has a good appetite denies nausea vomiting or aspiration. Denies chest pain worsening shortness of breath trouble breathing. She has worked with OT this morning and we will continue today. She has no complaints today. OBJECTIVE PHYSICAL EXAMINATION: VITAL SIGNS: Please see below. GENERAL: Pleasant 84-year-old female sitting in a chair eating breakfast, conversational, no acute respiratory distress, no accessory muscle use HEENT: Atraumatic normocephalic. EOMI, moist mucous membranes CARDIOVASCULAR: Heart sounds muffled by adventitious lung sounds RESPIRATORY: Improved aeration bilaterally. Adventitious rhonchorous sounds in the upper airways. ABDOMINAL: Soft nontender obese abdomen EXTREMITIES: No lower extremity edema bilaterally or calf tenderness. NEUROLOGICAL: Alert and oriented 3 competent LABORATORY DATA, IMAGING STUDIES, MICROBIOLOGY: Please see below. DVT prophylaxis ordered?: Heparin ASSESSMENT AND PLAN: Septic shock secondary to right upper lobe Pneumonia - community acquired pneumonia -[facility]: febrile, tachycardic, tachypneic & leukocyotis failed IV fluid resuscitation Levophed 12 mcg at the time of transfer -CXR 02/25: large right upper lobe infiltrate. Small bilateral pleural effusions. Right IJ central venous catheter. -Clinically improving, no supplemental oxygen required, off the off pressors since 02/26 -Cultures: normal chayito. MRSA negative -Leukocytosis has resolved, CRP down trending -Antibiotics: Zosyn de-escalate antibiotics to Augmentin till 03/04 (antibiotics therapy for 7-10 days to cover for community-acquired pneumonia) -Supportive care: Robitussin, DuoNeb's, albuterol, tessalon pearls, chest PT Chest discomfort (resolved) -Likely secondary to her underlying pneumonia -EKG negative T-wave abnormalities -Troponinx2 negative Acute kidney injury (resolved) Hypokalemia and Hypomagnesemia -Will supplement as needed Sjogren's Syndrome with keratoconjunctivitis sicca. -c/w home Plaquenil and eye drops. Osteoarthritis. -Continue with home gabapentin -Will hold tramadol until kidney function returns to baseline Hypothyroidism. c/w home Synthroid. Hypertension. -continue to hold amlodipine and Lasix -restart losartan in the AM. Gastroesophageal reflux disease (GERD): -c/w home omeprazole. Physical therapy/occupational therapy -consulted -Possible ARU Deep venous thrombosis (DVT) prophylaxis - Heparin subcutaneous CODE STATUS DNR/DNI Diet -Low-sodium diet because of history of hypertension Disposition: pending PT and further clinical improvement. Possible discharge in 24-48 hours VS, I&O, 24H, Fishbone Vital Signs/I&O Vital Signs Date Time Temp Pulse Resp B/P (MAP) Pulse Ox O2 Delivery O2 Flow Rate FiO2 03/01/19 06:00 99.5 96 21 152/70 (97) 92 02/26/19 20:00 1.0 94 l I&O- Last 24 Hours up to 6 AM 03/01/19 06:00 Intake Total 2195 ml Output Total 2250 ml Balance -55 ml Laboratory Data 24H LABS Laboratory Tests 2 03/01/19 05:30: Immature Granulocyte % (Auto) 0.6, White Blood Count 3.2L, Red Blood Count 3.53L, Hemoglobin 10.7L, Hematocrit 31.8L, Mean Corpuscular Volume 90.1, Mean Corpuscular Hemoglobin 30.3, Mean Corpuscular Hemoglobin Concent 33.6, Red Cell Distribution Width 13.9, Platelet Count 100L, Neutrophils (%) (Auto) 68.1H, Lymphocytes (%) (Auto) 10.3L, Monocytes (%) (Auto) 19.1H, Eosinophils (%) (Auto) 1.3, Basophils (%) (Auto) 0.6, Neutrophils # (Auto) 2.2, Lymphocytes # (Auto) 0.3L, Monocytes # (Auto) 0.6, Eosinophils # (Auto) 0.0, Basophils # (Auto) 0.0, Nucleated Red Blood Cells % (auto) 0.0, Anion Gap 7L, Glomerular Filtration Rate > 60.0, Blood Urea Nitrogen 13, Creatinine 0.63, Sodium Level 135L, Potassium Level 3.8, Chloride Level 105, Carbon Dioxide Level 23, Calcium Level 8.1L, C- Reactive Protein, Quantitative 10.10H CBC/BMP Laboratory Tests 03/01/19 05:30 Red Blood Count 3.53 L, Mean Corpuscular Volume 90.1, Mean Corpuscular Hemoglobin 30.3, Mean Corpuscular Hemoglobin Concent 33.6, Red Cell Distribution Width 13.9, Neutrophils (%) (Auto) 68.1 H, Lymphocytes (%) (Auto) 10.3 L, Monocytes (%) (Auto) 19.1 H, Eosinophils (%) (Auto) 1.3, Basophils (%) (Auto) 0.6, Neutrophils # (Auto) 2.2, Lymphocytes # (Auto) 0.3 L, Monocytes # (Auto) 0.6, Eosinophils # (Auto) 0.0, Basophils # (Auto) 0.0, Calcium Level 8.1 L Microbiology Microbiology 02/26/19 Blood Culture - Preliminary, Resulted No Growth after 72 hours. All specime... 02/26/19 Blood Culture - Preliminary, Resulted No Growth after 72 hours. All specime... 02/26/19 Gastrointestinal Tract Panel (PCR) - Final, Complete 02/26/19 Gram Stain - Final, Complete 02/26/19 Sputum Culture - Final, Complete Yeast Like Organism 02/26/19 MRSA Screen - Final, Complete GME ATTESTATION GME ATTESTATION My faculty preceptor for this patient encounter was physically present during the encounter and was fully available. All aspects of the patient interview, examination, medical decision making process, and medical care plan development were reviewed and approved by the faculty preceptor. The faculty preceptor is aware and concurs with the plan as stated in the body of this note and will attest to such by his/her cosignature. NATI THORNTON DO Mar 01, 2019 12:00
[2019-03-01] MEDS: LOSARTAN 50 MG TAB PO SCH (15:07)
[2019-03-01] MEDS: ACETAMINOPHEN TAB 650MG DOSE (2X325MG) PO PRN (15:08)
[2019-03-01] MEDS: AUGMENTIN 875 MG TAB PO SCH (21:05)
[2019-03-01] MEDS: LATANOPROST 0.005% OPHTH SOLN 2.5 ML OU SCH (21:07)
[2019-03-01 22:00] VITALS: BP 142/80
[2019-03-02] MEDS: guaiFENesin DM LIQ 10ML UD PO SCH ×3 (05:20→17:19)
[2019-03-02] MEDS: ACETAMINOPHEN TAB 650MG DOSE (2X325MG) PO PRN ×3 (05:23→17:33)
[2019-03-02] MEDS: LEVOTHYROXINE 25MCG TABLET (0.025MG) PO SCH (05:23)
[2019-03-02] MEDS: SLF 3 ML SYR IV SCH ×3 (05:24→20:50)
[2019-03-02 06:00] VITALS: BP 141/82
[2019-03-02 06:40] LABS: MEAN CORPUSCULAR HEMOGLOBIN 29.6 pg (27.0-33.0); MEAN CORPUSCULAR HGB CONC 33.3 g/dl (32.0-36.5); MEAN CORPUSCULAR VOLUME 88.9 fl (80.0-96.0); PLATELET COUNT, AUTOMATED 107 10^3/uL (150-450); RED BLOOD COUNT 3.71 10^6/uL (4.00-5.40); WHITE BLOOD COUNT 4.3 10^3/uL (4.0-10.0)
[2019-03-02 06:53] LABS: BLOOD UREA NITROGEN 9 MG/DL (7-18); CALCIUM LEVEL 8.2 MG/DL (8.8-10.2); CARBON DIOXIDE LEVEL 23 MEQ/L (21-32); CHLORIDE LEVEL 101 MEQ/L (98-107); CREATININE FOR GFR 0.59 MG/DL (0.55-1.30); GLOMERULAR FILTRATION RATE > 60.0 (>32); GLUCOSE, FASTING 93 MG/DL (70-100); POTASSIUM SERUM 3.7 MEQ/L (3.5-5.1); SODIUM LEVEL 133 MEQ/L (136-145)
[2019-03-02] MEDS: ADVAIR HFA 115/21MCG INHALER INH SCH ×2 (08:08→20:40)
[2019-03-02] MEDS: IPRATROPIUM 0.5MG/ALBUTEROL 2.5MG INH SOL UD 3ML (DUONEB)(J7620) NEB SCH ×4 (08:08→20:00)
[2019-03-02] MEDS: GABAPENTIN 300 MG CAP PO SCH ×2 (09:08→20:48)
[2019-03-02] MEDS: OMEPRAZOLE 20 MG CAP PO SCH (09:09)
[2019-03-02] MEDS: FLUTICASONE PROP 0.05% NASAL SPRAY 16 GM (FLONASE) SCH ×2 (09:09→20:47)
[2019-03-02] MEDS: LACTOBACILLUS ACIDOPHILUS CAP (BACID) PO SCH ×2 (09:09→17:19)
[2019-03-02] MEDS: AUGMENTIN 875 MG TAB PO SCH ×2 (09:09→20:48)
[2019-03-02] MEDS: FLUOROMETHOLONE 0.1% OPHTH SUSP 5 ML BTL OU SCH ×4 (09:09→20:50)
[2019-03-02] MEDS: LOSARTAN 50 MG TAB PO SCH (09:09)
[2019-03-02] MEDS: NYSTATIN 100,000 UNITS/GM TOPICAL PWD 15 GM TOP SCH (09:10)
[2019-03-02] MEDS: HEPARIN SOD (PORCINE) 5000 UNITS/ML VIAL SC SCH ×2 (09:10→20:47)
[2019-03-02] MEDS: HYDROXYCHLOROQUINE 200 MG TAB PO SCH (09:10)
--- NOTE | 2019-03-02 12:33 | IPNPDOC ---
Date Seen The patient was seen on 03/02/19. Progress Note SUBJECTIVE: Patient is a 84-year-old female who is in examined this morning at bedside. Says that she is feeling much better but she is still experiencing some non productive cough. She did have chest PT yesterday and will have a couple more sessions today with her scheduled DuoNeb's. She had a MAXIMUM TEMPERATURE of 100.2 early this morning. Patient states that she does not feel febrile that she has been a little sweaty overnight. She was wondering if we can call down the room. She states that she would like to take a shower and ambulate around the halls at this possible. She is on like that she is stuck in bed. She continues to work with PT and is awaiting placement for rehabilitation upon discharge. She has no complaints today. Denies nausea, vomiting, diarrhea, constipation, worsening shortness of breath, chest pain, headedness, or headaches. OBJECTIVE PHYSICAL EXAMINATION: VITAL SIGNS: Please see below. GENERAL: Pleasant 84-year-old female sitting in a chair eating breakfast, conversational, no acute respiratory distress, no accessory muscle use HEENT: Atraumatic normocephalic. EOMI, moist mucous membranes CARDIOVASCULAR: Heart sounds muffled by adventitious lung sounds RESPIRATORY: Improved aeration bilaterally. Adventitious rhonchorous sounds in the upper airways. ABDOMINAL: Soft nontender obese abdomen EXTREMITIES: No lower extremity edema bilaterally or calf tenderness. NEUROLOGICAL: Alert and oriented 3 competent LABORATORY DATA, IMAGING STUDIES, MICROBIOLOGY: Please see below. DVT prophylaxis ordered?: Heparin ASSESSMENT AND PLAN: Septic shock secondary to right upper lobe Pneumonia - community acquired pneumonia -[facility]: febrile, tachycardic, tachypneic & leukocyotis failed IV fluid resuscitation Levophed 12 mcg at the time of transfer -CXR 02/25: large right upper lobe infiltrate. Small bilateral pleural effusions. Right IJ central venous catheter. -Clinically improving, no supplemental oxygen required, off the off pressors since 02/26 -Cultures: normal chayito. MRSA negative -Antibiotics: Augmentin till 03/04-03/07 (antibiotics therapy for 7-10 days to cover for community-acquired pneumonia) -Supportive care: Robitussin, DuoNeb's, albuterol, tessalon pearls, chest PT Chest discomfort (resolved) -Likely secondary to her underlying pneumonia -EKG negative T-wave abnormalities -Troponinx2 negative Acute kidney injury (resolved) Hypokalemia and Hypomagnesemia -Will supplement as needed Sjogren's Syndrome with keratoconjunctivitis sicca. -c/w home Plaquenil and eye drops. Osteoarthritis. -Continue with home gabapentin -Will hold tramadol until kidney function returns to baseline Hypothyroidism. c/w home Synthroid. Hypertension. -continue to hold Lasix -c/w losartan -Restart HOME amlodipine in the a.m. Gastroesophageal reflux disease (GERD): -c/w home omeprazole. Physical therapy/occupational therapy -consulted -Possible ARU Deep venous thrombosis (DVT) prophylaxis - Heparin subcutaneous CODE STATUS DNR/DNI Diet -Low-sodium diet because of history of hypertension Disposition: pending PT and further clinical improvement. Possible discharge in 24-48 hours VS, I&O, 24H, [place] Vital Signs/I&O Vital Signs Date Time Temp Pulse Resp B/P (MAP) Pulse Ox O2 Delivery O2 Flow Rate FiO2 03/02/19 09:09 142/76 03/02/19 07:04 98.5 03/02/19 06:00 104 24 90 02/26/19 20:00 1.0 94 I&O- Last 24 Hours up to 6 AM 03/02/19 06:00 Intake Total 1790 ml Output Total 2500 ml Balance -710 ml Laboratory Data 24H LABS Laboratory Tests 2 03/02/19 05:30: Nucleated Red Blood Cells % (auto) 0.0, Anion Gap 9, Glomerular Filtration Rate > 60.0, Blood Urea Nitrogen 9, Creatinine 0.59, Sodium Level 133L, Potassium Level 3.7, Chloride Level 101, Carbon Dioxide Level 23, Calcium Level 8.2L, C- Reactive Protein, Quantitative 10.80H CBC/BMP Laboratory Tests 03/02/19 05:30 Red Blood Count 3.71 L, Mean Corpuscular Volume 88.9, Mean Corpuscular Hemoglobin 29.6, Mean Corpuscular Hemoglobin Concent 33.3, Red Cell Distribution Width 13.8, Calcium Level 8.2 L Microbiology Microbiology 02/26/19 Blood Culture - Preliminary, Resulted No Growth after 72 hours. All specime... 02/26/19 Blood Culture - Preliminary, Resulted No Growth after 72 hours. All specime... 02/26/19 Gastrointestinal Tract Panel (PCR) - Final, Complete 02/26/19 Gram Stain - Final, Complete 02/26/19 Sputum Culture - Final, Complete Yeast Like Organism 02/26/19 MRSA Screen - Final, Complete GME ATTESTATION GME ATTESTATION My faculty preceptor for this patient encounter was physically present during the encounter and was fully available. All aspects of the patient interview, examination, medical decision making process, and medical care plan development were reviewed and approved by the faculty preceptor. The faculty preceptor is aware and concurs with the plan as stated in the body of this note and will attest to such by his/her cosignature. NATI THORNTON DO Mar 02, 2019 12:33
[2019-03-02 13:45] VITALS: BP 120/50
[2019-03-02 14:00] VITALS: BP 125/60
[2019-03-02] MEDS: LATANOPROST 0.005% OPHTH SOLN 2.5 ML OU SCH (20:46)
[2019-03-02 22:00] VITALS: BP 129/82
[2019-03-03] MEDS: SLF 3 ML SYR IV SCH ×3 (05:56→20:28)
[2019-03-03] MEDS: LEVOTHYROXINE 25MCG TABLET (0.025MG) PO SCH (05:56)
[2019-03-03] MEDS: guaiFENesin DM LIQ 10ML UD PO SCH ×4 (05:56→17:11)
[2019-03-03 06:00] VITALS: BP 138/70
[2019-03-03 06:30] LABS: HEMATOCRIT 32.9 % (36.0-47.0); HEMOGLOBIN 10.9 g/dl (12.0-15.5); MEAN CORPUSCULAR HEMOGLOBIN 29.6 pg (27.0-33.0); MEAN CORPUSCULAR HGB CONC 33.1 g/dl (32.0-36.5); MEAN CORPUSCULAR VOLUME 89.4 fl (80.0-96.0); PLATELET COUNT, AUTOMATED 122 10^3/uL (150-450); RED BLOOD COUNT 3.68 10^6/uL (4.00-5.40); WHITE BLOOD COUNT 4.3 10^3/uL (4.0-10.0)
[2019-03-03 06:53] LABS: BLOOD UREA NITROGEN 14 MG/DL (7-18); CALCIUM LEVEL 8.7 MG/DL (8.8-10.2); CARBON DIOXIDE LEVEL 25 MEQ/L (21-32); CHLORIDE LEVEL 101 MEQ/L (98-107); CREATININE FOR GFR 0.66 MG/DL (0.55-1.30); GLOMERULAR FILTRATION RATE > 60.0 (>32); GLUCOSE, FASTING 83 MG/DL (70-100); POTASSIUM SERUM 3.7 MEQ/L (3.5-5.1); SODIUM LEVEL 134 MEQ/L (136-145)
[2019-03-03] MEDS: ADVAIR HFA 115/21MCG INHALER INH SCH ×2 (08:10→19:12)
[2019-03-03] MEDS: IPRATROPIUM 0.5MG/ALBUTEROL 2.5MG INH SOL UD 3ML (DUONEB)(J7620) NEB SCH ×4 (08:10→19:12)
[2019-03-03] MEDS: GABAPENTIN 300 MG CAP PO SCH ×2 (09:12→20:27)
[2019-03-03] MEDS: AUGMENTIN 875 MG TAB PO SCH ×2 (09:13→20:27)
[2019-03-03] MEDS: LOSARTAN 50 MG TAB PO SCH (09:13)
[2019-03-03] MEDS: OMEPRAZOLE 20 MG CAP PO SCH (09:13)
[2019-03-03] MEDS: HEPARIN SOD (PORCINE) 5000 UNITS/ML VIAL SC SCH ×2 (09:14→20:27)
[2019-03-03] MEDS: LACTOBACILLUS ACIDOPHILUS CAP (BACID) PO SCH ×2 (09:14→17:11)
[2019-03-03] MEDS: FLUTICASONE PROP 0.05% NASAL SPRAY 16 GM (FLONASE) SCH ×2 (09:15→20:27)
[2019-03-03] MEDS: NYSTATIN 100,000 UNITS/GM TOPICAL PWD 15 GM TOP SCH (09:15)
[2019-03-03] MEDS: FLUOROMETHOLONE 0.1% OPHTH SUSP 5 ML BTL OU SCH ×4 (09:15→20:28)
[2019-03-03] MEDS: HYDROXYCHLOROQUINE 200 MG TAB PO SCH (09:17)
--- NOTE | 2019-03-03 09:59 | REP ---
REASON: Pyrexia. COMPARISON: 02/26/2019. Patchy opacity seen on the right is unchanged when the technical differences between the examinations are taken into consolidation. Right sided central venous catheter has been removed. Cardiomediastinal silhouette is unchanged. The heart is not enlarged. No change in the osseous structures. IMPRESSION: No change. Electronically Signed by Jose Manuel Cardozo DO 03/03/2019 01:49 P
[2019-03-03 14:00] VITALS: BP 148/65
--- NOTE | 2019-03-03 15:24 | IPNPDOC ---
Date Seen The patient was seen on 03/03/19. Progress Note SUBJECTIVE: Patient tells me she is having difficulty clearing her sputum but otherwise she denies chest pressure shortness of breath he denies feeling any fevers or chills. He tells me that she feels though she is improving every day OBJECTIVE PHYSICAL EXAMINATION: VITAL SIGNS: Please see below. GENERAL: Pleasant 84-year-old female sitting in a chair eating receiving chest PT, no acute respiratory distress, no accessory muscle use HEENT: Atraumatic normocephalic. EOMI, moist mucous membranes CARDIOVASCULAR: S1-S2 regular RESPIRATORY: CTA b/l ABDOMINAL: Soft nontender obese abdomen EXTREMITIES: No lower extremity edema bilaterally or calf tenderness. NEUROLOGICAL: Alert and oriented 3 competent LABORATORY DATA, IMAGING STUDIES, MICROBIOLOGY: Please see below. DVT prophylaxis ordered?: Heparin ASSESSMENT AND PLAN :Septic shock secondary to right upper lobe Pneumonia - community acquired pneumonia. Resolving immediately stable. The etiology of her fevers is unclear she's continued on Augmentin. I will check respiratory PCR panel recheck blood cultures check UA as well as a chest x-ray in order to ensure there is no other etiology. Cultures thus far been negative. I will check her restaurant PCR panel. Supportive care: Robitussin, DuoNeb's, albuterol, tessalon pearls, chest PT Acute kidney injury (resolved) Hypokalemia and Hypomagnesemia : Resolved Sjogren's Syndrome with keratoconjunctivitis sicca. c/w home Plaquenil and eye drops. Osteoarthritis: Continue with home gabapentin, can likely resume tramadol tomorrow Hypothyroidism:c/w home Synthroid. Hypertension: c/w losartan, amlodipine consider resuming Lasix possibly tomorrow Gastroesophageal reflux disease (GERD): c/w home omeprazole. Thrush: We'll restart her home fluconazole once a week Disposition: pending PT and resolution of fevers. Possible discharge in 24-48 hours DNR/DNI VS, I&O, 24H, Fishbone Vital Signs/I&O Vital Signs Date Time Temp Pulse Resp B/P (MAP) Pulse Ox O2 Delivery O2 Flow Rate FiO2 03/03/19 09:13 72 140/70 03/03/19 06:00 97.9 20 93 02/26/19 20:00 1.0 94 l I&O- Last 24 Hours up to 6 AM 4/21/19 06:00 Intake Total 2280 ml Output Total 400 ml Balance 1880 ml Laboratory Data 24H LABS Laboratory Tests 2 03/03/19 05:29: Nucleated Red Blood Cells % (auto) 0.0, Anion Gap 8, Glomerular Filtration Rate > 60.0, Blood Urea Nitrogen 14#, Creatinine 0.66, Sodium Level 134L, Potassium Level 3.7, Chloride Level 101, Carbon Dioxide Level 25, Calcium Level 8.7L, C- Reactive Protein, Quantitative 13.60H CBC/BMP Laboratory Tests 03/03/19 05:29 Red Blood Count 3.68 L, Mean Corpuscular Volume 89.4, Mean Corpuscular Hemoglobin 29.6, Mean Corpuscular Hemoglobin Concent 33.1, Red Cell Distribution Width 14.0, Calcium Level 8.7 L Microbiology Microbiology 03/03/19 Blood Culture, Received Pending 03/03/19 Blood Culture, Received Pending 02/26/19 Blood Culture - Final, Complete NO GROWTH AFTER 5 DAYS 02/26/19 Blood Culture - Final, Complete NO GROWTH AFTER 5 DAYS 02/26/19 Gastrointestinal Tract Panel (PCR) - Final, Complete 02/26/19 Gram Stain - Final, Complete 02/26/19 Sputum Culture - Final, Complete Yeast Like Organism 02/26/19 MRSA Screen - Final, Complete KAITLIN VELÁZQUEZ MD Mar 03, 2019 15:24
[2019-03-03] MEDS ORDERED: FLUCONAZOLE 100 MG TAB PO ONE (15:30)
[2019-03-03] MEDS: LATANOPROST 0.005% OPHTH SOLN 2.5 ML OU SCH (20:28)
[2019-03-03 22:00] VITALS: BP_SYST 125; BP_SYST 129; BP_DIAS 59; BP_DIAS 79
[2019-03-04] MEDS: guaiFENesin DM LIQ 10ML UD PO SCH ×4 (00:16→18:00)
[2019-03-04] MEDS: LEVOTHYROXINE 25MCG TABLET (0.025MG) PO SCH (05:41)
[2019-03-04 06:00] VITALS: BP 140/70
[2019-03-04 06:22] LABS: HEMATOCRIT 31.2 % (36.0-47.0); HEMOGLOBIN 10.3 g/dl (12.0-15.5); PLATELET COUNT, AUTOMATED 126 10^3/uL (150-450); RED BLOOD COUNT 3.43 10^6/uL (4.00-5.40); WHITE BLOOD COUNT 3.6 10^3/uL (4.0-10.0)
[2019-03-04] MEDS: SLF 3 ML SYR IV SCH ×3 (06:28→21:14)
[2019-03-04 06:48] LABS: BLOOD UREA NITROGEN 14 MG/DL (7-18); CALCIUM LEVEL 8.4 MG/DL (8.8-10.2); CARBON DIOXIDE LEVEL 25 MEQ/L (21-32); CHLORIDE LEVEL 104 MEQ/L (98-107); CREATININE FOR GFR 0.55 MG/DL (0.55-1.30); GLOMERULAR FILTRATION RATE > 60.0 (>32); GLUCOSE, FASTING 87 MG/DL (70-100); SODIUM LEVEL 134 MEQ/L (136-145)
[2019-03-04] MEDS ORDERED: OSELTAMIVIR PHOSPHATE 75 MG CAP (TAMIFLU) PO ONE (07:00)
[2019-03-04] MEDS: ADVAIR HFA 115/21MCG INHALER INH SCH ×2 (07:16→19:20)
[2019-03-04] MEDS: IPRATROPIUM 0.5MG/ALBUTEROL 2.5MG INH SOL UD 3ML (DUONEB)(J7620) NEB SCH ×4 (07:16→19:21)
[2019-03-04] MEDS: LACTOBACILLUS ACIDOPHILUS CAP (BACID) PO SCH ×2 (08:35→18:00)
[2019-03-04] MEDS: AUGMENTIN 875 MG TAB PO SCH ×2 (08:36→21:12)
[2019-03-04] MEDS: GABAPENTIN 300 MG CAP PO SCH ×2 (08:36→21:12)
[2019-03-04] MEDS: HYDROXYCHLOROQUINE 200 MG TAB PO SCH (08:37)
[2019-03-04] MEDS: LOSARTAN 50 MG TAB PO SCH (08:38)
[2019-03-04] MEDS: OMEPRAZOLE 20 MG CAP PO SCH (08:39)
[2019-03-04] MEDS: HEPARIN SOD (PORCINE) 5000 UNITS/ML VIAL SC SCH ×2 (08:40→21:13)
[2019-03-04] MEDS: FLUTICASONE PROP 0.05% NASAL SPRAY 16 GM (FLONASE) SCH ×2 (08:41→21:13)
[2019-03-04] MEDS: FLUOROMETHOLONE 0.1% OPHTH SUSP 5 ML BTL OU SCH ×4 (08:42→21:14)
[2019-03-04] MEDS: NYSTATIN 100,000 UNITS/GM TOPICAL PWD 15 GM TOP SCH (08:43)
[2019-03-04 14:00] VITALS: BP 137/64
[2019-03-04] MEDS: ACETAMINOPHEN TAB 650MG DOSE (2X325MG) PO PRN (18:10)
[2019-03-04] MEDS: OSELTAMIVIR PHOSPHATE 75 MG CAP (TAMIFLU) PO SCH (21:13)
[2019-03-04] MEDS: LATANOPROST 0.005% OPHTH SOLN 2.5 ML OU SCH (21:14)
[2019-03-04 22:00] VITALS: BP 146/70
[2019-03-05 06:00] VITALS: BP 140/62
[2019-03-05] MEDS: guaiFENesin DM LIQ 10ML UD PO SCH ×5 (06:03→23:50)
[2019-03-05] MEDS: LEVOTHYROXINE 25MCG TABLET (0.025MG) PO SCH (06:03)
[2019-03-05] MEDS: SLF 3 ML SYR IV SCH (06:04)
[2019-03-05] MEDS: IPRATROPIUM 0.5MG/ALBUTEROL 2.5MG INH SOL UD 3ML (DUONEB)(J7620) NEB SCH ×4 (08:00→20:00)
[2019-03-05] MEDS: HYDROXYCHLOROQUINE 200 MG TAB PO SCH (08:29)
[2019-03-05] MEDS: OMEPRAZOLE 20 MG CAP PO SCH (08:29)
[2019-03-05] MEDS: OSELTAMIVIR PHOSPHATE 75 MG CAP (TAMIFLU) PO SCH ×2 (08:30→21:31)
[2019-03-05] MEDS: GABAPENTIN 300 MG CAP PO SCH ×2 (08:30→21:31)
[2019-03-05] MEDS: AUGMENTIN 875 MG TAB PO SCH ×2 (08:30→21:31)
[2019-03-05] MEDS: LACTOBACILLUS ACIDOPHILUS CAP (BACID) PO SCH ×2 (08:30→18:01)
[2019-03-05] MEDS: LOSARTAN 50 MG TAB PO SCH (08:31)
[2019-03-05] MEDS: HEPARIN SOD (PORCINE) 5000 UNITS/ML VIAL SC SCH ×2 (08:31→21:31)
[2019-03-05] MEDS: FLUOROMETHOLONE 0.1% OPHTH SUSP 5 ML BTL OU SCH ×4 (08:32→21:30)
[2019-03-05] MEDS: FLUTICASONE PROP 0.05% NASAL SPRAY 16 GM (FLONASE) SCH ×2 (08:32→21:00)
[2019-03-05] MEDS: NYSTATIN 100,000 UNITS/GM TOPICAL PWD 15 GM TOP SCH (08:33)
[2019-03-05] MEDS: ADVAIR HFA 115/21MCG INHALER INH SCH ×2 (08:36→21:04)
--- NOTE | 2019-03-05 09:18 | IPNPDOC ---
Date Seen The patient was seen on 03/04/19. Progress Note SUBJECTIVE: Patient is a 84-year-old female who is in examined this morning at bedside. Says that she is feeling much better but she is still experiencing some non productive cough. She is using Chest PT and states that it is helping with her cough. She denies any fevers, chills, diaphoresis. She is agreeable to going to rehab to increase her strength. Nursing reported no new overnight events. OBJECTIVE PHYSICAL EXAMINATION: VITAL SIGNS: Please see below. GENERAL: Pleasant 84-year-old female sitting in a chair eating breakfast, conversational, no acute respiratory distress, no accessory muscle use HEENT: Atraumatic normocephalic. EOMI, moist mucous membranes CARDIOVASCULAR: Heart sounds muffled by adventitious lung sounds RESPIRATORY: Improved aeration bilaterally. Adventitious rhonchorous sounds in the upper airways. ABDOMINAL: Soft nontender obese abdomen EXTREMITIES: No lower extremity edema bilaterally or calf tenderness. NEUROLOGICAL: Alert and oriented 3 competent LABORATORY DATA, IMAGING STUDIES, MICROBIOLOGY: Please see below. DVT prophylaxis ordered?: Heparin ASSESSMENT AND PLAN: Septic shock secondary to right upper lobe Pneumonia - community acquired pneumonia -[facility]: febrile, tachycardic, tachypneic & leukocyotis failed IV fluid resuscitation Levophed 12 mcg at the time of transfer -CXR 02/25: large right upper lobe infiltrate. Small bilateral pleural effusions. Right IJ central venous catheter. -Clinically improving, no supplemental oxygen required, off pressors since 02/26 -Cultures: normal chayito. MRSA negative -Antibiotics: Augmentin till 03/04-03/07 (antibiotics therapy for 7-10 days to cover for community-acquired pneumonia) -Supportive care: Robitussin, DuoNeb's, albuterol, tessalon pearls, chest PT Influenza -Became febrile 03/01, max temperature 101.4. Afebrile for the last 48 hrs -Patient reports improving cough and denies fevers/chills/diaphoresis -Tamiflu: 75mg BID x5 day course (end 03/08) Chest discomfort (resolved) -Likely secondary to her underlying pneumonia -EKG negative T-wave abnormalities -Troponinx2 negative Acute kidney injury (resolved) Hypokalemia and Hypomagnesemia -Will supplement as needed Sjogren's Syndrome with keratoconjunctivitis sicca. -c/w home Plaquenil and eye drops. Osteoarthritis. -Continue with home gabapentin -Will hold tramadol until kidney function returns to baseline Hypothyroidism. c/w home Synthroid. Hypertension. -continue to hold Lasix -c/w losartan and amlodipine Gastroesophageal reflux disease (GERD): -c/w home omeprazole. Physical therapy/occupational therapy -consulted -Possible ARU Deep venous thrombosis (DVT) prophylaxis - Heparin subcutaneous CODE STATUS DNR/DNI Diet -Low-sodium diet because of history of hypertension Disposition: Possible discharge in 24-48 hrs to rehab. [facility] Vital Signs/I&O Vital Signs Date Time Temp Pulse Resp B/P (MAP) Pulse Ox O2 Delivery O2 Flow Rate FiO2 03/04/19 08:39 83 125/69 03/04/19 06:00 98.4 19 97 02/26/19 20:00 1.0 94 I&O- Last 24 Hours up to 6 AM 03/04/19 07:00 Intake Total 3025 ml Output Total 1350 ml Balance 1675 ml Laboratory Data 24H LABS Laboratory Tests 2 03/04/19 03:27: Urine Color STRAW, Urine Appearance CLEAR, Urine pH 6.0, Urine Specific [place] 1.002, Urine Protein NEGATIVE, Urine Glucose (UA) NEGATIVE, Urine Ketones NEGATIVE, Urine Blood NEGATIVE, Urine Nitrite NEGATIVE, Urine Bilirubin NEGATIVE, Urine Urobilinogen 0.2, Urine Leukocyte Esterase NEGATIVE, Urine WBC (Auto) 0, Urine RBC (Auto) 1, Urine Hyaline Casts (Auto) 0, Urine Bacteria (Auto) NEGATIVE, Urine Squamous Epithelial Cells 0, Urine Sperm (Auto) 03/04/19 06:00: Nucleated Red Blood Cells % (auto) 0.0, Anion Gap 5L, Glomerular Filtration Rate > 60.0, Blood Urea Nitrogen 14, Creatinine 0.55, Sodium Level 134L, Potassium Level 4.0, Chloride Level 104, Carbon Dioxide Level 25, Calcium Level 8.4L, C- Reactive Protein, Quantitative 11.10H CBC/BMP Laboratory Tests 03/04/19 06:00 Red Blood Count 3.43 L, Mean Corpuscular Volume 91.0, Mean Corpuscular Hemoglobin 30.0, Mean Corpuscular Hemoglobin Concent 33.0, Red Cell Distribution Width 13.9, Calcium Level 8.4 L Microbiology Microbiology 03/03/19 Blood Culture - Preliminary, Resulted No growth after 24 hours . All specim... 03/03/19 Blood Culture - Preliminary, Resulted No growth after 24 hours . All specim... 02/26/19 Blood Culture - Final, Complete NO GROWTH AFTER 5 DAYS 02/26/19 Blood Culture - Final, Complete NO GROWTH AFTER 5 DAYS 02/26/19 Gastrointestinal Tract Panel (PCR) - Final, Complete 03/04/19 Respiratory Virus Panel (PCR) (KIKO) - Final, Complete Influenza A H3 02/26/19 Gram Stain - Final, Complete 02/26/19 Sputum Culture - Final, Complete Yeast Like Organism 02/26/19 MRSA Screen - Final, Complete GME ATTESTATION GME ATTESTATION My faculty preceptor for this patient encounter was physically present during the encounter and was fully available. All aspects of the patient interview, examination, medical decision making process, and medical care plan development were reviewed and approved by the faculty preceptor. The faculty preceptor is aware and concurs with the plan as stated in the body of this note and will attest to such by his/her cosignature. SUNDAY MUSA S-III Mar 04, 2019 13:54
--- NOTE | 2019-03-05 09:18 | IPNPDOC ---
Date Seen The patient was seen on 02/28/19. Progress Note SUBJECTIVE: Patient is a 84-year-old female who is in examined this morning at bedside. Says that she is feeling much better. She reports a continuing cough, with only a slight amount of sputum production. She also reports some weakness and diarrhea that has been off and on since admission. She denies any worsening shortness of breath, nausea, vomiting. She has no other complaints at this time. Nursing reported no new overnight events OBJECTIVE PHYSICAL EXAMINATION: VITAL SIGNS: Please see below. GENERAL: Pleasant 84-year-old female sitting in a chair eating breakfast, conversational, no acute respiratory distress, no accessory muscle use HEENT: Atraumatic normocephalic. EOMI, moist mucous membranes CARDIOVASCULAR: Distant heart sounds. RESPIRATORY: increased air flow throughout bilateral lungs. Rhonchi in R lung field (improving) ABDOMINAL: Soft nontender obese abdomen EXTREMITIES: No lower extremity edema bilaterally or calf tenderness. NEUROLOGICAL: Alert and oriented 3 competent LABORATORY DATA, IMAGING STUDIES, MICROBIOLOGY: Please see below. DVT prophylaxis ordered?: Heparin ASSESSMENT AND PLAN: Septic shock secondary to right upper lobe Pneumonia - community acquired pneumonia -[facility]: febrile, tachycardic, tachypneic & leukocyotis failed IV fluid resuscitation Levophed 12 mcg at the time of transfer -CXR 02/25: large right upper lobe infiltrate. Small bilateral pleural effusions. Right IJ central venous catheter. -Clinically improving, no supplemental oxygen required, off the off pressors since 02/26 -Cultures: normal chayito. MRSA negative -Leukocytosis has resolved, CRP down trending -Antibiotics: Zosyn. (antibiotics therapy for 7-10 days to cover for community-acquired pneumonia) -Supportive care: Robitussin, DuoNeb's, albuterol, tessalon pearls, chest PT Chest discomfort -EKG negative T-wave abnormalities -Troponin -0.02 -Likely secondary to her underlying pneumonia we'll continue monitor Acute kidney injury (resolved) Hypokalemia and Hypomagnesemia. -Will supplement as needed. Sjogren's Syndrome with keratoconjunctivitis sicca. -c/w home Plaquenil and eye drops. Osteoarthritis. -Continue with home gabapentin -Will hold tramadol until kidney function returns to baseline Hypothyroidism. c/w home Synthroid. Hypertension. -continue to hold amlodipine, Losartan and Lasix -Will consider restarting in the a.m. Gastroesophageal reflux disease (GERD): -c/w home omeprazole. Physical therapy/occupational therapy -consulted Deep venous thrombosis (DVT) prophylaxis - Heparin subcutaneous CODE STATUS DNR/DNI Diet -Low-sodium diet because of history of hypertension Disposition: pending PT and further clinical improvement. Possible discharge in 24-48 hours VS, I&O, 24H, Fishbone Vital Signs/I&O Vital Signs Date Time Temp Pulse Resp B/P (MAP) Pulse Ox O2 Delivery O2 Flow Rate FiO2 02/28/19 12:00 98.1 90 19 140/78 (98) 92 02/26/19 20:00 1.0 94 I&O- Last 24 Hours up to 6 AM 02/28/19 06:00 Intake Total 2040 ml Output Total 2350 ml Balance -310 ml Laboratory Data 24H LABS Laboratory Tests 2 02/27/19 15:44: Troponin I < 0.02 02/28/19 05:40: Nucleated Red Blood Cells % (auto) 0.0, Anion Gap 7L, Glomerular Filtration Rate > 60.0, Blood Urea Nitrogen 14, Creatinine 0.66, Sodium Level 138, Potassium Level 3.7, Chloride Level 109H, Carbon Dioxide Level 22, Calcium Level 7.2L, Magnesium Level 2.0, C-Reactive Protein, Quantitative 15.50H 02/28/19 11:29: CBC/BMP Laboratory Tests 02/28/19 05:40 Red Blood Count 3.25 L, Mean Corpuscular Volume 90.2, Mean Corpuscular Hemoglobin 30.2, Mean Corpuscular Hemoglobin Concent 33.4, Red Cell Distribution Width 13.5, Calcium Level 7.2 L Microbiology Microbiology 02/26/19 Blood Culture - Preliminary, Resulted No Growth after 48 hours. All Specime... 02/26/19 Blood Culture - Preliminary, Resulted No Growth after 48 hours. All Specime... 02/26/19 Gastrointestinal Tract Panel (PCR) - Final, Complete 02/26/19 Gram Stain - Final, Complete 02/26/19 Sputum Culture - Final, Complete Yeast Like Organism 02/26/19 MRSA Screen - Final, Complete GME ATTESTATION GME ATTESTATION My faculty preceptor for this patient encounter was physically present during the encounter and was fully available. All aspects of the patient interview, examination, medical decision making process, and medical care plan development were reviewed and approved by the faculty preceptor. The faculty preceptor is aw are and concurs with the plan as stated in the body of this note and will attest to such by his/her cosignature. SUNDAY MUSA OMS-III Feb 28, 2019 13:24
--- NOTE | 2019-03-05 10:40 | IPNPDOC ---
Date Seen The patient was seen on 03/05/19. Progress Note SUBJECTIVE: Patient is a 84-year-old female who was examined this morning at bedside. Says that she is feeling much better and that her non productive cough has improved. She denies SOB, fevers, chills. She does report that she has burning from a lesion on her lower lip and her tongue. She has tried to help by applying chapstix but it has not improved. She has had this previously, much more when she was younger. She has no other concerns. Nursing reported no new overnight events. OBJECTIVE PHYSICAL EXAMINATION: VITAL SIGNS: Please see below. GENERAL: Pleasant 84-year-old female sitting in a chair, conversational, no acute respiratory distress, no accessory muscle use HEENT: Atraumatic normocephalic. EOMI, moist mucous membranes. Open vesicles on erythematous base on midline of lower lip. Ulcerating vesicles on midline of tongue. CARDIOVASCULAR: Regular rate and rhythm. Normal S1 and S2 RESPIRATORY: Improved aeration bilaterally. Rhonchi improving. ABDOMINAL: Soft nontender obese abdomen EXTREMITIES: No lower extremity edema bilaterally or calf tenderness. NEUROLOGICAL: Alert and oriented 3 competent LABORATORY DATA, IMAGING STUDIES, MICROBIOLOGY: Please see below. DVT prophylaxis ordered?: Heparin ASSESSMENT AND PLAN: Septic shock secondary to right upper lobe Pneumonia - community acquired pneumonia -[facility]: febrile, tachycardic, tachypneic & leukocyotis failed IV fluid resuscitation Levophed 12 mcg at the time of transfer -CXR 02/25: large right upper lobe infiltrate. Small bilateral pleural effusions. Right IJ central venous catheter. -Clinically improving, no supplemental oxygen required, off pressors since 02/26 -Cultures: normal chayito. MRSA negative -Antibiotics: Augmentin till 03/04-03/07 (antibiotics therapy for 7-10 days to cover for community-acquired pneumonia) -Supportive care: Robitussin, DuoNeb's, albuterol, tessalon pearls, chest PT Influenza -Became febrile 03/01, max temperature 101.4. Afebrile for the last 72 hrs -Patient reports improving cough and denies fevers/chills/diaphoresis -Tamiflu: 75mg BID x5 day course (end 03/08) Herpetic stomatitis -Patient reports worsening lesions on her lip and tongue that burn. -Acyclovir 400 TID x5 days (end 03/09) Chest discomfort (resolved) -Likely secondary to her underlying pneumonia -EKG negative T-wave abnormalities -Troponinx2 negative Acute kidney injury (resolved) Hypokalemia and Hypomagnesemia -Will supplement as needed Sjogren's Syndrome with keratoconjunctivitis sicca. -c/w home Plaquenil and eye drops. Osteoarthritis. -Continue with home gabapentin -Will hold tramadol until kidney function returns to baseline Hypothyroidism. c/w home Synthroid. Hypertension. -continue to hold Lasix -c/w losartan and amlodipine Gastroesophageal reflux disease (GERD): -c/w home omeprazole. Physical therapy/occupational therapy -consulted -Possible ARU Deep venous thrombosis (DVT) prophylaxis - Heparin subcutaneous CODE STATUS DNR/DNI Diet -Low-sodium diet because of history of hypertension Disposition: Possible discharge in 24-48 hrs to rehab. VS, I&O, 24H, Fishbone Vital Signs/I&O Vital Signs Date Time Temp Pulse Resp B/P (MAP) Pulse Ox O2 Delivery O2 Flow Rate FiO2 03/05/19 08:31 132/74 03/05/19 08:30 80 03/05/19 06:00 97.8 18 95 I&O- Last 24 Hours up to 6 AM 03/05/19 07:00 Intake Total 1740 ml Output Total 2850 ml Balance -1110 ml Laboratory Data Microbiology Microbiology 03/03/19 Blood Culture - Preliminary, Resulted No Growth after 48 hours. All Specime... 03/03/19 Blood Culture - Preliminary, Resulted No Growth after 48 hours. All Specime... 02/26/19 Blood Culture - Final, Complete NO GROWTH AFTER 5 DAYS 02/26/19 Blood Culture - Final, Complete NO GROWTH AFTER 5 DAYS 02/26/19 Gastrointestinal Tract Panel (PCR) - Final, Complete 03/04/19 Respiratory Virus Panel (PCR) (KIKO) - Final, Complete Influenza A H3 02/26/19 Gram Stain - Final, Complete 02/26/19 Sputum Culture - Final, Complete Yeast Like Organism 02/26/19 MRSA Screen - Final, Complete GME ATTESTATION GME ATTESTATION My faculty preceptor for this patient encounter was physically present during the encounter and was fully available. All aspects of the patient interview, examination, medical decision making process, and medical care plan development were reviewed and approved by the faculty preceptor. The faculty preceptor is aw are and concurs with the plan as stated in the body of this note and will attest to such by his/her cosignature. ATTENDING NOTE I have reviewed the residents note and have personally examined the patient. I agree with the Residents physical examination and assessment and plan. SUNDAY MUSA OMS-III Mar 05, 2019 10:40 TATI CARRERA MD Mar 08, 2019 21:28
[2019-03-05] MEDS: ACYCLOVIR 200 MG CAPSULE PO SCH ×3 (10:50→21:31)
[2019-03-05 14:00] VITALS: BP 153/72
[2019-03-05] MEDS: LATANOPROST 0.005% OPHTH SOLN 2.5 ML OU SCH (21:30)
[2019-03-05 22:00] VITALS: BP 150/70
[2019-03-06] MEDS: guaiFENesin DM LIQ 10ML UD PO SCH ×4 (05:58→23:58)
[2019-03-06] MEDS: LEVOTHYROXINE 25MCG TABLET (0.025MG) PO SCH (05:58)
[2019-03-06 06:00] VITALS: BP 160/78
[2019-03-06] MEDS: IPRATROPIUM 0.5MG/ALBUTEROL 2.5MG INH SOL UD 3ML (DUONEB)(J7620) NEB SCH ×4 (08:00→20:00)
[2019-03-06] MEDS: ADVAIR HFA 115/21MCG INHALER INH SCH ×2 (08:23→20:10)
[2019-03-06] MEDS: OMEPRAZOLE 20 MG CAP PO SCH (08:27)
[2019-03-06] MEDS: FLUTICASONE PROP 0.05% NASAL SPRAY 16 GM (FLONASE) SCH ×2 (08:27→20:14)
[2019-03-06] MEDS: HEPARIN SOD (PORCINE) 5000 UNITS/ML VIAL SC SCH ×2 (08:27→20:14)
[2019-03-06] MEDS: NYSTATIN 100,000 UNITS/GM TOPICAL PWD 15 GM TOP SCH (08:28)
[2019-03-06] MEDS: FLUOROMETHOLONE 0.1% OPHTH SUSP 5 ML BTL OU SCH ×4 (08:28→20:14)
[2019-03-06] MEDS: ACYCLOVIR 200 MG CAPSULE PO SCH ×3 (08:29→20:13)
[2019-03-06] MEDS: OSELTAMIVIR PHOSPHATE 75 MG CAP (TAMIFLU) PO SCH ×2 (08:30→20:12)
[2019-03-06] MEDS: HYDROXYCHLOROQUINE 200 MG TAB PO SCH (08:30)
[2019-03-06] MEDS: LACTOBACILLUS ACIDOPHILUS CAP (BACID) PO SCH ×2 (08:30→18:09)
[2019-03-06] MEDS: GABAPENTIN 300 MG CAP PO SCH ×2 (08:30→20:14)
[2019-03-06] MEDS: LOSARTAN 50 MG TAB PO SCH (08:30)
[2019-03-06] MEDS: AUGMENTIN 875 MG TAB PO SCH ×2 (08:32→20:12)
--- NOTE | 2019-03-06 11:32 | IPNPDOC ---
Date Seen The patient was seen on 03/06/19. Progress Note SUBJECTIVE: Patient is a 84-year-old female who was examined this morning at bedside. Says that she is feeling much better and that her non productive cough has improved. She denies SOB, fevers, chills. She reports that the burning lesion on her lower lip and her tongue is improving. She has no other concerns. Nursing reported no new overnight events. OBJECTIVE PHYSICAL EXAMINATION: VITAL SIGNS: Please see below. GENERAL: Pleasant 84-year-old female sitting up in bed, conversational, no acute respiratory distress, no accessory muscle use HEENT: Atraumatic normocephalic. EOMI, moist mucous membranes. Open vesicles on erythematous base on left midline of lower lip (Improving). CARDIOVASCULAR: Regular rate and rhythm. Normal S1 and S2 RESPIRATORY: CTA bilaterally. Improved aeration. ABDOMINAL: Soft nontender obese abdomen EXTREMITIES: No lower extremity edema bilaterally or calf tenderness. NEUROLOGICAL: Alert and oriented 3 competent LABORATORY DATA, IMAGING STUDIES, MICROBIOLOGY: Please see below. DVT prophylaxis ordered?: Heparin ASSESSMENT AND PLAN: Septic shock secondary to right upper lobe Pneumonia - community acquired pneumonia -[facility]: febrile, tachycardic, tachypneic & leukocyotis failed IV fluid resuscitation Levophed 12 mcg at the time of transfer -CXR 02/25: large right upper lobe infiltrate. Small bilateral pleural effusions. Right IJ central venous catheter. -Clinically improving, no supplemental oxygen required, off pressors since 02/26 -Cultures: normal chayito. MRSA negative -Antibiotics: Augmentin till 03/04-03/07 (antibiotics therapy for 7-10 days to cover for community-acquired pneumonia) -Supportive care: Robitussin, DuoNeb's, albuterol, tessalon pearls Influenza -Became febrile 03/01, max temperature 101.4. Afebrile for >72 hrs -Patient reports improving cough and denies fevers/chills/diaphoresis -Tamiflu: 75mg BID x5 day course (end 03/08) Herpetic stomatitis -Patient reports worsening lesions on her lip and tongue that burn. -Acyclovir 400 TID x5 days (end 03/09) Chest discomfort (resolved) -Likely secondary to her underlying pneumonia -EKG negative T-wave abnormalities -Troponinx2 negative Acute kidney injury (resolved) Hypokalemia and Hypomagnesemia -Will supplement as needed Sjogren's Syndrome with keratoconjunctivitis sicca. -c/w home Plaquenil and eye drops. Osteoarthritis. -Continue with home gabapentin -Will hold tramadol until kidney function returns to baseline Hypothyroidism. c/w home Synthroid. Hypertension. -continue to hold Lasix -c/w losartan and amlodipine Gastroesophageal reflux disease (GERD): -c/w home omeprazole. Physical therapy/occupational therapy -consulted Deep venous thrombosis (DVT) prophylaxis - Heparin subcutaneous CODE STATUS DNR/DNI Diet -Low-sodium diet because of history of hypertension Disposition: Possible discharge in 24-48 hrs to rehab. A-FIB/CHADSVASC A-FIB History Current/History of A-Fib/PAF?: No VS, I&O, 24H, Fishbone Vital Signs/I&O Vital Signs Date Time Temp Pulse Resp B/P (MAP) Pulse Ox O2 Delivery O2 Flow Rate FiO2 03/06/19 08:31 83 154/73 03/06/19 06:00 98.1 18 92 I&O- Last 24 Hours up to 6 AM 03/06/19 07:00 Intake Total 2010 ml Output Total 1750 ml Balance 260 ml Laboratory Data Microbiology Microbiology 03/03/19 Blood Culture - Preliminary, Resulted No Growth after 72 hours. All specime... 03/03/19 Blood Culture - Preliminary, Resulted No Growth after 72 hours. All specime... 02/26/19 Blood Culture - Final, Complete NO GROWTH AFTER 5 DAYS 02/26/19 Blood Culture - Final, Complete NO GROWTH AFTER 5 DAYS 02/26/19 Gastrointestinal Tract Panel (PCR) - Final, Complete 03/04/19 Respiratory Virus Panel (PCR) (KIKO) - Final, Complete Influenza A H3 02/26/19 Gram Stain - Final, Complete 02/26/19 Sputum Culture - Final, Complete Yeast Like Organism 02/26/19 MRSA Screen - Final, Complete GME ATTESTATION GME ATTESTATION My faculty preceptor for this patient encounter was physically present during the encounter and was fully available. All aspects of the patient interview, examination, medical decision making process, and medical care plan development were reviewed and approved by the faculty preceptor. The faculty preceptor is aware and concurs with the plan as stated in the body of this note and will attest to such by his/her cosignature. SUNDAY MUSA OMS-III Mar 06, 2019 11:32
[2019-03-06 14:00] VITALS: BP 142/68
[2019-03-06] MEDS: ACETAMINOPHEN TAB 650MG DOSE (2X325MG) PO PRN (20:13)
[2019-03-06] MEDS: LATANOPROST 0.005% OPHTH SOLN 2.5 ML OU SCH (20:14)
[2019-03-06 22:00] VITALS: BP 138/66
[2019-03-07] MEDS: LEVOTHYROXINE 25MCG TABLET (0.025MG) PO SCH (05:51)
[2019-03-07] MEDS: guaiFENesin DM LIQ 10ML UD PO SCH (05:51)
[2019-03-07 06:00] VITALS: BP 141/72
[2019-03-07 06:28] LABS: HEMATOCRIT 32.2 % (36.0-47.0); HEMOGLOBIN 10.3 g/dl (12.0-15.5); MEAN CORPUSCULAR HEMOGLOBIN 28.9 pg (27.0-33.0); MEAN CORPUSCULAR VOLUME 90.4 fl (80.0-96.0); PLATELET COUNT, AUTOMATED 180 10^3/uL (150-450); RED BLOOD COUNT 3.56 10^6/uL (4.00-5.40); WHITE BLOOD COUNT 3.3 10^3/uL (4.0-10.0)
[2019-03-07 06:45] LABS: BLOOD UREA NITROGEN 15 MG/DL (7-18); CALCIUM LEVEL 8.5 MG/DL (8.8-10.2); CARBON DIOXIDE LEVEL 26 MEQ/L (21-32); CHLORIDE LEVEL 104 MEQ/L (98-107); GLOMERULAR FILTRATION RATE > 60.0 (>32); GLUCOSE, FASTING 84 MG/DL (70-100); SODIUM LEVEL 136 MEQ/L (136-145)
[2019-03-07] MEDS: IPRATROPIUM 0.5MG/ALBUTEROL 2.5MG INH SOL UD 3ML (DUONEB)(J7620) NEB SCH ×2 (07:23→11:11)
[2019-03-07] MEDS: ADVAIR HFA 115/21MCG INHALER INH SCH (07:24)
[2019-03-07] MEDS ORDERED: ACYC200C8 PO (08:49)
[2019-03-07] MEDS ORDERED: OSEL75CA2 PO (08:49)
[2019-03-07] MEDS: OMEPRAZOLE 20 MG CAP PO SCH (09:38)
[2019-03-07] MEDS: LACTOBACILLUS ACIDOPHILUS CAP (BACID) PO SCH (09:38)
[2019-03-07] MEDS: HEPARIN SOD (PORCINE) 5000 UNITS/ML VIAL SC SCH (09:38)
[2019-03-07] MEDS: ACYCLOVIR 200 MG CAPSULE PO SCH (09:38)
[2019-03-07] MEDS: OSELTAMIVIR PHOSPHATE 75 MG CAP (TAMIFLU) PO SCH (09:38)
[2019-03-07] MEDS: GABAPENTIN 300 MG CAP PO SCH (09:38)
[2019-03-07] MEDS: LOSARTAN 50 MG TAB PO SCH (09:39)
[2019-03-07] MEDS: HYDROXYCHLOROQUINE 200 MG TAB PO SCH (09:39)
[2019-03-07 09:40] VITALS: BP 112/72
[2019-03-07] MEDS: FLUOROMETHOLONE 0.1% OPHTH SUSP 5 ML BTL OU SCH (09:40)
[2019-03-07] MEDS: NYSTATIN 100,000 UNITS/GM TOPICAL PWD 15 GM TOP SCH (09:40)
[2019-03-07] MEDS: FLUTICASONE PROP 0.05% NASAL SPRAY 16 GM (FLONASE) SCH (09:41)
--- NOTE | 2019-03-07 13:30 | DS.PDOC ---
Discharge Summary General Date of Admission Feb 25, 2019 at 22:52 Date of Discharge 03/07/19 Primary Care Physician: A Discharge Summary PROCEDURES PERFORMED DURING STAY: None ADMITTING DIAGNOSES: 1. Septic shock 2/2 community acquired pneumonia 2. DON 3. Hypomagnesia 4. Sjogren's Syndrome with keratoconjunctivitis sicca. 5. Osteoarthritis 6. Hypothyroidism 7. HTN 8. GERD DISCHARGE DIAGNOSES: 1. Septic shock 2/2 Right upper lobe pneumonia 2. Influenza 3. Herpetic stomatitis 4. Chest discomfort 5. DON 6. hypokalemia 7. hypomagnesia 8. HTN 9. GERD 10. hypothyroidism 11. Sjogren's Syndrome with keratoconjunctivitis sicca 12. osteoarthritis COMPLICATIONS/CHIEF COMPLAINT: Septic Shock. HISTORY OF PRESENT ILLNESS: Ms. Jones is an 84-year-old female direct transfer from [facility] for septic shock secondary to pneumonia. She initially had presented to [facility] per the urging of her son who had felt that Ms. Jones was not herself for the previous few days. She herself denies any new complaints besides coughing and feeling more short of breath and she otherwise feels well. In the emergency room (ER) at [facility] she was noted to be febrile up to 101.4 and was noted to be quite hypotensive with a blood pressure (BP) of 71/37 on admission, pulse of 110, respirations at 29. She failed volume resuscitation and thus a central line was placed and she was started on Levophed. Due to lack of intensive care unit (ICU) bed she was transferred over to [facility]. Per hospital record she was started on intravenous (IV) Zosyn and Levaquin. She was found to have acute kidney injury (DON) and elevated C- reactive protein (CRP). CRP was elevated at 208. Chest x-ray revealed a right midlung mass versus a pneumonia. CT of the head was negative. CT of the chest confirmed a pneumonia and she was thereafter transferred to our facility. At the time of transfer the patient is fully conversant and continued on pressors in our ICU. She is a limited historian and admits to cough with some phlegm, increasing shortness of breath and wheezing and generalized weakness over the past couple of days. She states she lives alone at home and otherwise has been feeling well. She does have multiple falls at home, worsening over the previous few days that she has felt weaker. Otherwise she denies any chest discomfort, lightheadedness, dizziness, nausea or vomiting, abdominal pain or any other gastrointestinal (GI) symptoms. She also denies any sick contacts or any recent changes in medications. HOSPITAL COURSE: Ms. Jones was admitted to the ICU after being transferred to [facility] with Levophed on board. IV fluids were run, blood cultures were taken, and CXR revealed R upper lobe pneumonia. Patient was hemodynamically stabilized and Levophed was weaned off by the following day as pressures returned to baseline. Patient was initially treated with Vancomycin and Zosyn pending a MRSA screen for community acquired pneumonia and antibiotics were de-escalated to Augmentin to complete a 10 day course. Creatinine levels were trended to monitor DON which resolved by holding nephrotoxic agents and IVF. During hospitalization patient became febrile and was found to be Influenza A positive for which she received a 5 day course of Tamiflu. Patient also developed an herpetic stomatitis outbreak and was treated with Acyclovir x5 days. Patient is aware and agreeable to all discharge instructions. DISCHARGE MEDICATIONS: Please see below. ALLERGIES: Please see below. PHYSICAL EXAMINATION ON DISCHARGE: VITAL SIGNS: Please see below. GENERAL: Pleasant 84-year-old female sitting up in bed, conversational, no acute respiratory distress, no accessory muscle use HEENT: Atraumatic normocephalic. EOMI, moist mucous membranes. Healing open vesicles on erythematous base on left midline of lower lip CARDIOVASCULAR: Regular rate and rhythm. Normal S1 and S2 RESPIRATORY: CTA bilaterally. ABDOMINAL: Soft nontender obese abdomen EXTREMITIES: No lower extremity edema bilaterally or calf tenderness. NEUROLOGICAL: Alert and oriented 3 competent LABORATORY DATA: Please see below. IMAGING: Chest Xray 02/25/19 Impression: Large right upper lobe infiltrate. Right IJ central venous catheter. 02/26/19 Impression: Large right upper lobe infiltrate. Small bilateral pleural effusions. Right IJ central venous catheter. 03/03/19 IMPRESSION: No change. PROGNOSIS: Fair ACTIVITY: As tolerated. DIET: Low sodium Diet DISPOSITION: 62 D/T Rehab Facility. DISCHARGE INSTRUCTIONS: 1. f.u with pcp in 7-10 days. 2. complete acyclovir and tamiflu as proscibed. 3. if symptoms return or worsen please call your pcp or return to the ER. DISCHARGE CONDITION: Stable. TIME SPENT ON DISCHARGE: Greater than 35 minutes. Vital Signs/I&Os Vital Signs Date Time Temp Pulse Resp B/P (MAP) Pulse Ox O2 Delivery O2 Flow Rate FiO2 03/07/19 09:40 85 112/72 03/07/19 06:00 98.0 16 94 I&O- Last 24 Hours up to 6 AM 03/07/19 07:00 Intake Total 1800 ml Output Total 3150 ml Balance -1350 ml Laboratory Data Labs 24H Laboratory Tests 2 03/07/19 05:20: Nucleated Red Blood Cells % (auto) 0.0, Anion Gap 6L, Glomerular Filtration Rate > 60.0, Blood Urea Nitrogen 15, Creatinine 0.60, Sodium Level 136, Potassium Level 4.0, Chloride Level 104, Carbon Dioxide Level 26, Calcium Level 8.5L CBC/BMP Laboratory Tests 03/07/19 05:20 Red Blood Count 3.56 L, Mean Corpuscular Volume 90.4, Mean Corpuscular Hemoglobin 28.9, Mean Corpuscular Hemoglobin Concent 32.0, Red Cell Distribution Width 13.8, Calcium Level 8.5 L Microbiology Microbiology 03/03/19 Blood Culture - Preliminary, Resulted No Growth after 72 hours. All specime... 03/03/19 Blood Culture - Preliminary, Resulted No Growth after 72 hours. All specime... 02/26/19 Blood Culture - Final, Complete NO GROWTH AFTER 5 DAYS 02/26/19 Blood Culture - Final, Complete NO GROWTH AFTER 5 DAYS 02/26/19 Gastrointestinal Tract Panel (PCR) - Final, Complete 03/04/19 Respiratory Virus Panel (PCR) (KIKO) - Final, Complete Influenza A H3 02/26/19 Gram Stain - Final, Complete 02/26/19 Sputum Culture - Final, Complete Yeast Like Organism 02/26/19 MRSA Screen - Final, Complete Discharge Medications Scheduled Acyclovir (Acyclovir) 200 Mg Capsule, 400 MG PO TID Amlodipine Besylate (Amlodipine Besylate) 2.5 Mg Tablet, 2.5 MG PO DAILY, (Reported) Cyclosporine (Restasis) 1 Each Droperette, 1 DROP OU BID, (Reported) Denosumab Injection (Prolia) 60 Mg/1 Ml Syringe, 60 MG SC [id number], (Reported) Fluorometholone (Fluorometholone) 5 Ml Drops.susp, 1 DROP OU QID, (Reported) Fluticasone Propionate (Fluticasone Propionate) 16 Gm Sheridan.susp, 1 SPRAY NA BID, (Reported) Furosemide (Furosemide) 20 Mg Tablet, 20 MG PO DAILY, (Reported) Gabapentin (Gabapentin) 300 Mg Capsule, 900 MG PO BID, (Reported) Hydroxychloroquine Sulfate (Hydroxychloroquine Sulfate) 200 Mg Tablet, 300 MG PO DAILY, (Reported) Levothyroxine Sodium (Synthroid) 25 Mcg Tablet, 25 MCG PO DAILY, (Reported) Losartan Potassium (Losartan Potassium) 100 Mg Tablet, 100 MG PO DAILY, (Reported) Nystatin (Nyamyc) 15 Gm Powder, 100,000 UNIT TOP DAILY, (Reported) APPLY TO AFFECTED AREA Omeprazole (Omeprazole) 20 Mg Tablet.dr, 20 MG PO DAILY, (Reported) Oseltamivir Phosphate (Oseltamivir Phosphate) 75 Mg Capsule, 75 MG PO BID Raloxifene HCl (Raloxifene HCl) 60 Mg Tablet, 60 MG PO DAILY, (Reported) Salmeterol/Fluticasone (Advair 250-50 Diskus) 1 Each Blst.w.dev, 1 PUFF INH BID, (Reported) Travoprost (Travatan Z) 2.5 Ml Drops, 1 DROP OU QHS, (Reported) Scheduled PRN Albuterol Sulfate (Ventolin Hfa) 18 Gm Hfa.aer.ad, 1 PUFF INH Q4-6HP PRN for wheezing, (Reported) Diclofenac Sodium (Diclofenac Sodium) 50 Mg Tablet.dr, 50 MG PO BID PRN for PAIN, (Reported) Polyvinyl Alcohol (Artificial Tears) 15 Ml Drops, 1 DROP OU QID PRN for DRY EYES, (Reported) Tramadol HCl (Tramadol HCl) 50 Mg Tablet, 50 MG PO Q6H PRN for PAIN, (Reported) Allergies Coded Allergies: fenoprofen (Unverified Adverse Reaction, Unknown, HIVES, 02/25/19) GME ATTESTATION GME ATTESTATION My faculty preceptor for this patient encounter was physically present during the encounter and was fully available. All aspects of the patient interview, examination, medical decision making process, and medical care plan development were reviewed and approved by the faculty preceptor. The faculty preceptor is aware and concurs with the plan as stated in the body of this note and will attest to such by his/her cosignature. NATI THORNTON DO Mar 07, 2019 13:03
== END 2019-03-07 12:27 | DRG 871 ==
LOC: M ED INP 22:52 → M ICU 22:59 → M PCU 02-26 21:22 → M MSPAV 02-28 23:02
PROVIDERS: ADMIT Internal Medicine Nephrology; ATTEND Internal Medicine Nephrology
DX: A41.9 Sepsis, unspecified organism (principal); R65.21 Severe sepsis with septic shock; N17.9 Acute kidney failure, unspecified; B00.2 Herpesviral gingivostomatitis and pharyngotonsillitis; I12.9 Hypertensive chronic kidney disease with stage 1 through stage 4 chronic kidney disease, or unspecified chronic kidney disease; N18.3 Chronic kidney disease, stage 3 (moderate); E83.42 Hypomagnesemia; M35.01 Sjogren syndrome with keratoconjunctivitis; J10.1 Influenza due to other identified influenza virus with other respiratory manifestations; M19.90 Unspecified osteoarthritis, unspecified site; E87.6 Hypokalemia; K21.9 Gastro-esophageal reflux disease without esophagitis; Z79.899 Other long term (current) drug therapy; Z88.8 Allergy status to other drugs, medicaments and biological substances; E03.9 Hypothyroidism, unspecified; Z66 Do not resuscitate